=== PATIENT | female | born 1950 | race Caucasian/White ===

== ENCOUNTER 2020-01-07 14:16 | Outpatient (CLI) | payer OTHER, SELFPAY ==
--- NOTE | ~2020-01-07 | MM_ITS ---
EXAMINATION: MM screening nishi BI w jamari HISTORY: Screening mammogram TECHNIQUE: Craniocaudal and mediolateral oblique 3-D tomosynthesis images were obtained and synthetic 2-D images were generated. CAD analysis was submitted and interpreted. COMPARISON: No prior mammogram is available for comparison at this institution. BREAST PARENCHYMAL COMPOSITION: The breasts are heterogeneously dense, which may obscure small masses . FINDINGS: There is no evidence of suspicious mass, calcification, or architectural distortion to sugg est malignancy in either breast. There has been no suspicious interval change. IMPRESSION: 1. No mammographic evidence of malignancy. 2. Recommend routine screening mammography in one year. BI-RADS Category 1: Negative Reviewed, dictated and finalized at location A. PENDENT LIVING ADVISOR
== END 2020-01-07 14:17 | disposition home or self-care (01) ==
LOC: ANHIMG 14:19
PROVIDERS: PCP Internal Medicine; Visit Provider Nurse Practitioner Obstetrics & Gynecology
DX: Z12.31 Encounter for screening mammogram for malignant neoplasm of breast (principal)
CPT/HCPCS: 77063; 77067

== ENCOUNTER 2020-12-20 11:22 | Emergency (ER) | payer OTHER, SELFPAY ==
[2020-12-20 11:30] VITALS: BP 154/78; PULSE 99; RESP 16; TEMP 36.8; O2SAT 95
--- NOTE | 2020-12-20 11:31 | ED.EPISTAXIS ---
HPI - Epistaxis General Chief complaint: Epistaxis Stated complaint: nose bleed Time Seen by Provider: 12/20/20 11:52 Source: patient and RN notes reviewed Mode of arrival: ambulatory Limitations: no limitations History of Present Illness HPI Narrative: 70-year-old female presents with concern for nosebleed. Reports intermittent light nosebleed for several days. Reports in the middle of the night she noticed bleeding started again, had a large amount of bleeding gushing from both nostrils in her mouth around 5 AM this morning. Reported that lasted approximately 1 hour. Reports she recently got diagnosed with sinusitis and was placed on antibiotics, she started using a saline nose spray yesterday, is not using any other medicated no sprays. Reports she has been using a humidifier at home. MD complaint: epistaxis Location: right nostril Treatment prior to arrival: nose pinching Related Data Home Medications Medication Instructions Recorded Confirmed clonazepam [Klonopin] 0.5 mg PO DAILY 12/20/20 12/20/20 estradiol [Estrace] 1 mg PO DAILY 12/20/20 12/20/20 gabapentin [Neurontin] 800 mg PO QID 12/20/20 12/20/20 hydrocodone-acetaminophen [[place]] 1 tablet PO Q6H 12/20/20 12/20/20 lisinopril [Zestril] 10 mg PO DAILY 12/20/20 12/20/20 mirtazapine [Remeron] 30 mg PO HS 12/20/20 12/20/20 simvastatin [Zocor] 10 mg PO DAILY 12/20/20 12/20/20 venlafaxine [Effexor XR] 150 mg PO DAILY 12/20/20 12/20/20 Allergies Allergy/AdvReac Type Severity Reaction Status Date / Time iodine Allergy Unknown Verified 12/20/20 11:31 Review of Systems Review of Systems: Narrative: CONSTITUTIONAL: Denies malaise, chills, sweats, or fever. EYES: Denies visual changes, redness, or discharge. ENT: Denies rhinorrhea, congestion, sinus pain, otalgia or sore throat. Reports right nare epistaxis CARDIOVASCULAR: Denies chest pain, palpitations, or edema. RESPIRATORY: Denies cough or dyspnea. NEUROLOGIC: Denies headache. All systems reviewed & are unremarkable except as noted in HPI and below PMFSH Family History Family History (Updated 02/14/17 @ 23:56 by DOCTOR UNKNOWN) Father Family history of premature coronary heart disease, Onset Age: 67 Patient's father is Mother Family history of pancreatic cancer, Onset Age: 71 Patient's mother is Sibling Family history of malignant neoplasm of breast in first degree relative Social History Social History Alcohol intake: never Gender identity (if verbalized by the patient): Female Comments At time of signature, agree with nursing past medical, surgical, social and family history. There is no relevant family history pertinent to the presenting complaint Exam Narrative: Exam Narrative: GENERAL: Well-appearing, well-nourished, and in no acute distress. HEAD: Normocephalic, atraumatic. EYES: PERRLA, conjunctivae clear, and EOMI. ENT: Nares clear, turbinates pink, no rhinorrhea or current epistaxis, no septal hematoma noted. Mucous membranes moist. No postnasal bleeding noted NECK: Supple. CHEST: No respiratory distress. HEART: Regular rate and rhythm. SKIN: Warm, dry NEURO: Alert and oriented x3. PSYCH: Normal mood and affect Course Course Emergency Course: Patient is aware of diagnosis, understands and agrees to treatment plan. Anticipatory guidance given. Patient agrees to follow-up as directed and is aware of reasons to seek care at the emergency department. Portions of this record may have been created with voice recognition software Vital Signs Vital signs: Vital Signs Temperature 98.2 F 12/20/20 11:30 Pulse Rate 99 12/20/20 11:30 Respiratory Rate 16 12/20/20 11:30 Blood Pressure 154/78 H 12/20/20 11:30 Pulse Oximetry 95 12/20/20 11:30 Temperature 98.2 F 12/20/20 11:30 Pulse Rate 99 12/20/20 11:30 Respiratory Rate 16 12/20/20 11:30 Blood Pressure 154/78 H 12/20/20 11:30 Pulse Oximetry 95
--- NOTE | 2020-12-20 11:53 | PC.NURSE ---
1140- Afrin nasal spray administered via PLUNKET NURSE José Miguel Aguilera.
== END 2020-12-20 12:05 | disposition home or self-care (01) ==
PROVIDERS: Emergency Provider Nurse Practitioner
DX: R04.0 Epistaxis (principal); E11.9 Type 2 diabetes mellitus without complications
CPT/HCPCS: 99212; A9270; G0463

== ENCOUNTER 2020-12-21 08:13 | Emergency (ER) | payer OTHER, SELFPAY ==
[2020-12-21] VITALS (9 sets, daily range): BP systolic 115–158; BP diastolic 72–128; PULSE 75–97; RESP 15–18; TEMP 36.6; O2SAT 90–100
[2020-12-21 08:53] LABS: Basophils Absolute Auto 0.1 K/mm3 (0.0-0.1); Basophils Percent Auto 1.2 % (0.2-1.2); Eosinophils Absolute Auto 1.1 K/mm3 (0-0.3); Eosinophils Percent Auto 9.4 % (0-4.4); Hematocrit 45.9 % (37.0-47.0); Hemoglobin 15.3 g/dL (12.0-15.0); Immature Granulocyte Absolute 0.02 K/mm3 (0.00-0.031); Immature Granulocyte Percent A 0.2 % (0-0.5); Lymphocytes Absolute Auto 2.67 K/mm3 (0.9-3.2); Lymphocytes Percent Auto 22.7 % (18.3-44.2); Mean Corpuscular HGB Conc 33.3 g/dl (32-36); Mean Corpuscular Hemoglobin 32.6 pg (26-34); Mean Corpuscular Volume 97.9 fl (80-100); Mean Platelet Volume 10.2 fl (7.4-10.4); Monocytes Absolute Auto 1.1 K/mm3 (0.1-0.6); Monocytes Percent Auto 9.4 % (2.6-8.5); Neutrophils Absolute Auto 6.7 K/mm3 (1.3-6.7); Neutrophils Percent Auto 57.1 % (45.5-73.1); Platelet Count Result 292 k/mm3 (150-375); Red Blood Count 4.69 M/mm3 (4.2-5.4); Red Cell Distribution Width 12.6 % (11.5-14.5); White Blood Count 11.8 K/mm3 (4.5-10.0)
--- NOTE | 2020-12-21 08:53 | ED.GENADULT ---
HPI - General Adult General Chief complaint: Unspecified Stated complaint: epistaxis Time Seen by Provider: 12/21/20 08:20 Source: patient Mode of arrival: ambulatory Limitations: no limitations History of Present Illness HPI narrative: Patient is a 70-year-old female complaining of nosebleed, right side that started a few days ago. Patient states that she was seen in urgent care yesterday was given Afrin which eventually resolved. This morning the bleeding started and states that she has been using Afrin but to no effect. Patient denies any facial injury. Patient denies any hemoptysis, hematemesis, melena or hematochezia. Patient states that she is only on aspirin 81 mg but she has not taken it for the past few days. Patient denies being on any oral anticoagulants. Related Data Home Medications Medication Instructions Recorded Confirmed clonazepam [Klonopin] 0.5 mg PO DAILY 12/20/20 12/20/20 estradiol [Estrace] 1 mg PO DAILY 12/20/20 12/20/20 gabapentin [Neurontin] 800 mg PO QID 12/20/20 12/20/20 hydrocodone-acetaminophen [[place]] 1 tablet PO Q6H 12/20/20 12/20/20 lisinopril [Zestril] 10 mg PO DAILY 12/20/20 12/20/20 mirtazapine [Remeron] 30 mg PO HS 12/20/20 12/20/20 simvastatin [Zocor] 10 mg PO DAILY 12/20/20 12/20/20 venlafaxine [Effexor XR] 150 mg PO DAILY 12/20/20 12/20/20 Allergies Allergy/AdvReac Type Severity Reaction Status Date / Time iodine Allergy Unknown Nausea and Verified 12/21/20 08:22 Vomiting Review of Systems Review of Systems: All systems reviewed & are unremarkable except as noted in HPI and below Constitutional: Constitutional: Denies body ache(s), Denies chills, Denies excessive sweating, Denies fatigue, Denies fever(s), Denies headache(s), Denies lethargy, Denies malaise, Denies weakness and Denies weight loss Eyes: Eyes: Denies blurry vision, Denies change in vision and Denies loss of vision ENT: Denies dizziness, Denies ear discharge, Denies headache(s), Denies lip swelling, Denies nasal congestion, Denies neck pain, Denies throat swelling and Denies tongue swelling Cardiovascular: Cardiovascular: Denies chest pain, Denies chest pain at rest, Denies chest pain with activity, Denies diaphoresis, Denies rapid heart rate, Denies edema, Denies irregular heart rhythm, Denies lightheadedness, Denies palpitations, Denies dyspnea and Denies dyspnea on exertion Respiratory: Respiratory: Denies chest congestion, Denies cough, Denies hemoptysis, Denies dyspnea and Denies dyspnea on exertion Gastrointestinal: Gastrointestinal: Denies abdominal pain, Denies melena, Denies hematochezia, Denies diarrhea, Denies nausea, Denies vomiting and Denies hematemesis Musculoskeletal: Musculoskeletal: Denies abnormal gait, Denies deformity, Denies joint swelling, Denies limited range of motion, Denies neck pain and Denies numbness Neurologic: Denies Abnormal speech present, Denies abnormal gait, Denies confusion, Denies dizziness, Denies headache(s), Denies focal weakness, Denies loss of vision, Denies numbness, Denies Other visual disturbances, Denies Sensory deficit (Neuro) and Denies weakness Psychiatric: Psychiatric: Denies confusion, Denies depression, Denies auditory hallucinations, Denies homicidal ideation and Denies suicidal ideation Endocrine: Endocrine: Denies cold intolerance, Denies excessive sweating, Denies fatigue, Denies heat intolerance and Denies palpitations Hematologic/Lymphatic: Hematologic/Lymphatic: Denies easy bleeding and Denies easy bruising Allergic/Immunologic: Allergic/Immunologic: Denies lip swelling, Denies throat swelling and Denies tongue swelling PMFSH Family History Family History Father Family history of premature coronary heart disease, Onset Age: 67 Patient's father is Mother Family history of pancreatic cancer, Onset Age: 71 Patient's mother is Sibling Family history of malignant ne
[2020-12-21 09:05] LABS: INR 0.9; Partial Thromboplastin Time 32.2 SECONDS (22.3-36.8); Prothrombin Time 13.2 Seconds (11.1-14.7)
[2020-12-21 09:06] LABS: Anion Gap 6 mmol/L (8-16); Blood Urea Nitrogen 17 mg/dL (7-17); Calcium 9.5 mg/dL (8.4-10.2); Carbon Dioxide 29 mmol/L (22-30); Chloride 105 mmol/L (98-107); Estimated CRCL calculation 51 ml/min; Estimated Glomerular Filt Rate > 60; Glucose 131 mg/dL (65-105); Potassium 4.7 mmol/L (3.4-5.0); Sodium 140 mmol/L (137-145)
--- NOTE | 2020-12-21 09:30 | PC.NURSE ---
Avivao et placed by BENJAMIN Sanchez at this time.
--- NOTE | 2020-12-21 12:31 | PC.NURSE ---
Daughter called at this time - stating pt's nose is bleeding constantly from both nares now and she cannot understand why she is bleeding around the rhino rocket plug. - I explained to place an ice pack to the bridge of nose, sit up, and may attempt a noseclamp to her nose. And that pt is more than welcomed to come back if she is still bleeding and bleeding continuously.
== END 2020-12-21 10:02 | disposition home or self-care (01) ==
PROVIDERS: Emergency Provider Emergency Medicine; PCP Family Medicine
DX: R04.0 Epistaxis (principal)
CPT/HCPCS: 30901; 36415; 80048; 85025; 85610; 85730; 99283; A9270

== ENCOUNTER 2020-12-21 14:12 | Emergency (ER) | payer OTHER, SELFPAY ==
[2020-12-21 14:22] VITALS: BP 105/61; PULSE 100; RESP 17; TEMP 36.4; O2SAT 94
== END 2020-12-21 17:46 | disposition left against medical advice (07) ==
LOC: ANHED 17:46
PROVIDERS: PCP Family Medicine
DX: R04.0 Epistaxis (principal)
CPT/HCPCS: 99199

== ENCOUNTER 2020-12-22 12:20 | Emergency (ER) | payer OTHER, SELFPAY ==
[2020-12-22] VITALS (10 sets, daily range): BP systolic 116–136; BP diastolic 55–98; PULSE 71–94; RESP 18–20; TEMP 36.2; O2SAT 92–95
--- NOTE | 2020-12-22 13:05 | PC.NURSE ---
rhinorocket has been removed from rt nare for approx 10 mins. no nasal bleeding observed. pt instructed to call fidel if new onset nasal bleeding. spouse at bedside.
--- NOTE | 2020-12-22 13:36 | PC.NURSE ---
no epitaxis. pt has no c/o or requests. updated on pt status
--- NOTE | 2020-12-22 14:10 | PC.NURSE ---
up to bathroom with assist. no nasal bleeding
[2020-12-22] MEDS: MORPHINE SULFATE (*CRX) 4 MG/ML INJ IV PUSH (14:42)
[2020-12-22] MEDS: ONDANSETRON INJ 4 MG/2 ML VIAL IV PUSH (14:42)
--- NOTE | 2020-12-22 14:46 | PC.NURSE ---
medicated for pain and nausea after new lg rhinorocket inserted rt nare. pt experienced small amt bleeding after amb to bathroom.
--- NOTE | 2020-12-22 15:08 | ED.EPISTAXIS ---
HPI - Epistaxis General Chief complaint: Epistaxis Stated complaint: nosebleed Time Seen by Provider: 12/22/20 12:32 Source: patient Mode of arrival: ambulatory Limitations: no limitations History of Present Illness HPI Narrative: Patient 70 years old white female came to the emergency room because of right nostril bleeding status post Rhino Rocket placement yesterday. Patient reported that she was bleeding even at the time of discharge yesterday. Patient does not take blood thinner, Related Data Home Medications Medication Instructions Recorded Confirmed clonazepam [Klonopin] 0.5 mg PO DAILY 12/20/20 12/20/20 estradiol [Estrace] 1 mg PO DAILY 12/20/20 12/20/20 gabapentin [Neurontin] 800 mg PO QID 12/20/20 12/20/20 hydrocodone-acetaminophen [[place]] 1 tablet PO Q6H 12/20/20 12/20/20 lisinopril [Zestril] 10 mg PO DAILY 12/20/20 12/20/20 mirtazapine [Remeron] 30 mg PO HS 12/20/20 12/20/20 simvastatin [Zocor] 10 mg PO DAILY 12/20/20 12/20/20 venlafaxine [Effexor XR] 150 mg PO DAILY 12/20/20 12/20/20 Allergies Allergy/AdvReac Type Severity Reaction Status Date / Time iodine AdvReac Mild Nausea and Verified 12/22/20 12:27 Vomiting Review of Systems Review of Systems: Narrative: CONSTITUTIONAL: Denies fever, chills, or sweats. EYES: Denies visual changes, redness, or discharge. ENT: Denies rhinorrhea, congestion, sore throat, or otalgia. CARDIOVASCULAR: Denies chest pain, palpitations, or edema. RESPIRATORY: Denies cough or dyspnea. GASTROINTESTINAL: Denies abdominal pain, nausea, vomiting, or diarrhea. GENITOURINARY: Denies dysuria or hematuria. SKIN: Denies rash or itching. MUSCULOSKELETAL: Denies back pain, joint pain, or myalgia. NEUROLOGIC: Denies headache, numbness, or weakness. PSYCHIATRIC: Denies anxiety or depression. [facility] Family History Family History Father Family history of premature coronary heart disease, Onset Age: 67 Patient's father is Mother Family history of pancreatic cancer, Onset Age: 71 Patient's mother is Sibling Family history of malignant neoplasm of breast in first degree relative Social History Social History Alcohol intake: never Gender identity (if verbalized by the patient): Female Exam Narrative: Exam Narrative: General appearance: Well-developed, well-nourished Skin: Normal color Head: Normocephalic, nontraumatic Eyes: Clear conjunctiva ENT: Oropharynx normal, ears normal, FRESH blood around the Rhino Rocket , Rocket balloon is deflated and loose Neck: Supple, nontender Chest and respiratory: Airway patent, no respiratory distress, no accessory muscle use Heart: Regular rate/rhythm Neurologic: Alert and oriented ?3, STAFF FORESTER is normal as tested, no gross motor deficit Course Course Emergency Course: Improving Vital Signs Vital signs: Vital Signs Temperature 36.2 C L 12/22/20 12:27 Pulse Rate 87 12/22/20 12:27 Respiratory Rate 20 12/22/20 12:27 Blood Pressure 136/98 H 12/22/20 12:27 Pulse Oximetry 94 12/22/20 12:27 Temperature 36.2 C L 12/22/20 12:27 Pulse Rate 94 12/22/20 12:31 Respiratory Rate 20 12/22/20 12:27 Blood Pressure 116/55 L 12/22/20 13:31 Pulse Oximetry 93 12/22/20 14:04 Procedures Epistaxis Control right: Epistaxis Control Date: 12/22/20 Epistaxis Control Time: 15:16 Time Out Performed: Yes Direct Inspection: yes and unable to visualize Clots Removed by: manually (No blood clots, no active bleeding) Cautery Used: none Device Inserted: hemostati
== END 2020-12-22 15:48 | disposition home or self-care (01) ==
PROVIDERS: Emergency Provider Emergency Medicine; PCP Family Medicine
DX: R04.0 Epistaxis (principal)
CPT/HCPCS: 30901; 96374; 96375; 99284; J2270; J2405

== ENCOUNTER 2021-04-24 15:01 | Outpatient (CLI) | payer OTHER, SELFPAY ==
--- NOTE | ~2021-04-24 | MM_ITS ---
EXAMINATION: MM screening nishi BI w jamari HISTORY: Screening mammogram, family history of breast cancer in her sister. TECHNIQUE: Craniocaudal and mediolateral oblique 3-D tomosynthesis images were obtained and synthetic 2-D images were generated. CAD analysis was submitted and interpreted. COMPARISON: 12/30/2019, 01/04/2019, 11/19/2017 BREAST PARENCHYMAL COMPOSITION: The breasts are heterogeneously dense, which may obscure small masses . FINDINGS: There is no evidence of suspicious mass, calcification, or architectural distortion to sugg est malignancy in either breast. There has been no suspicious interval change. IMPRESSION: 1. No mammographic evidence of malignancy. 2. Recommend routine screening mammography in one year. BI-RADS Category 1: Negative Reviewed, dictated and finalized at location A.
== END 2021-04-24 15:02 | disposition home or self-care (01) ==
LOC: ANHIMG 15:06
PROVIDERS: PCP Family Medicine; Visit Provider Family Medicine
DX: Z12.31 Encounter for screening mammogram for malignant neoplasm of breast (principal)
CPT/HCPCS: 77063; 77067

== ENCOUNTER 2021-07-31 13:17 | Outpatient (CLI) | payer OTHER, SELFPAY ==
--- NOTE | 2021-07-31 13:30 | ECG_ITS ---
Measurements Intervals [place] Rate: 69 P: 58 [place]: 173 QRS: -26 QRSD: 98 T: 59 QT: 409 QTc: 440 Interpretive Statements SINUS RHYTHM BORDERLINE R WAVE PROGRESSION, ANTERIOR LEADS BASELINE ARTIFACT- I, II, III, AVR, AVL, AVF BORDERLINE ECG Electronically Signed On 07-31-2021 13:47:44 CDT by Mohan Kinsey D.O.
[2021-07-31 13:41] LABS: Hematocrit 45.8 % (37.0-47.0)
[2021-07-31 13:59] LABS: Anion Gap 8 mmol/L (8-16); Blood Urea Nitrogen 13 mg/dL (7-17); Calcium 9.6 mg/dL (8.4-10.2); Carbon Dioxide 29 mmol/L (22-30); Chloride 100 mmol/L (98-107); Estimated Glomerular Filt Rate > 60; Glucose 221 mg/dL (65-110); Potassium 4.1 mmol/L (3.4-5.0); Sodium 137 mmol/L (137-145)
== END 2021-07-31 13:18 | disposition home or self-care (01) ==
LOC: ANHSURGERY 13:21
PROVIDERS: Anesthesiology; PCP Family Medicine; Visit Provider Otolaryngology
DX: Z01.818 Encounter for other preprocedural examination (principal); E11.9 Type 2 diabetes mellitus without complications; D64.9 Anemia, unspecified
CPT/HCPCS: 36415; 80048; 85014; 85018; 93005

== ENCOUNTER 2021-08-07 01:19 | Day surgery (SDC) | payer OTHER, SELFPAY ==
[2021-07-25 13:46] VITALS: BMI 23.6
--- NOTE | 2021-08-06 06:27 | PM.HPGS ---
History of Present Illness History of Present Illness Consent: Risks, benefits, and alternatives have been discussed and questions answered. Patient agrees to proceed with procedure. Chief complaint: right intranasal adhesion Narrative: Yamile Richardson is a 71 year old female that had epistaxis in the past and has developed an adhesion on the right side from the septum to the turbinate Review of Systems Review of Systems: All systems reviewed & are unremarkable except as noted in HPI and below PMFSH Family History Family History Father Family history of premature coronary heart disease, Onset Age: 67 Patient's father is Hypertension Mother Family history of pancreatic cancer, Onset Age: 71 Patient's mother is Sibling Family history of malignant neoplasm of breast in first degree relative Social History Social History Smoking packs per day: 0.5 Smoking cigarettes per day: 10.0 Years smoked: 10 Smoking pack-years: 5.00 Smoking status: Former smoker Tobacco type: cigarettes Second hand tobacco smoke exposure: No Additional smoking assessment comments: STATES QUIT AGE 49 Alcohol intake: never Substance use: never Substance use type: does not use Additional living arrangements comments: LIVES WITH SPOUSE - [place] Gender identity (if verbalized by the patient): Female Spiritual care concerns: No Meds Home Medications and Allergies Home Medications Medication Instructions Recorded Confirmed Type hydrocodone-acetaminophen [[place]] 1 tablet PO Q6H 12/20/20 07/25/21 History lisinopril [Zestril] 10 mg PO DAILY 12/20/20 07/25/21 History mirtazapine [Remeron] 30 mg PO HS 12/20/20 07/25/21 History simvastatin [Zocor] 10 mg PO DAILY 12/20/20 07/25/21 History venlafaxine [Effexor XR] 150 mg PO HS 12/20/20 07/25/21 History gabapentin 800 mg tablet 800 mg PO QID #120 tablet 03/28/21 07/25/21 Rx ascorbic acid (vitamin C) [Vitamin 500 mg PO DAILY 07/25/21 07/25/21 History C] aspirin [Aspir-81] 81 mg PO DAILY 07/25/21 07/25/21 History calcium carbonate [Calcium 600] 600 mg PO DAILY 07/25/21 07/25/21 History cholecalciferol (vitamin D3) 50 mcg PO DAILY 07/25/21 07/25/21 History clonazepam 0.5 mg PO TID PRN 07/25/21 07/25/21 History ferrous sulfate [Iron (ferrous 325 mg PO DAILY 07/25/21 07/25/21 History sulfate)] metformin 500 mg PO BID 07/25/21 07/25/21 History metoprolol succinate 200 mg PO QAM 07/25/21 07/25/21 History Allergies Allergy/AdvReac Type Severity Reaction Status Date / Time iodine AdvReac Mild Nausea and Verified 07/25/21 13:39 Vomiting Exam Narrative: chest clear heart without murmurs abdomen soft a adhesion on the right side of the nose Assessment and Plan Additional Plan plan is a lysis of adhesions and placement of splints
[2021-08-07] VITALS (9 sets, daily range): BP systolic 79–136; BP diastolic 33–70; PULSE 50–64; RESP 11–18; TEMP 36.2; O2SAT 95–98; BMI 24.0
--- NOTE | 2021-08-07 05:56 | WPDHPUPDATE1 ---
History and Physical Update Update Date/Time: 08/07/21 05:56 History and Physical has been reviewed, including an updated exam of the patient. There are NO changes in the patient's condition. Risks, benefits, and alternatives have been discussed and questions answered. Patient agrees to proceed with procedure.
[2021-08-07 08:46] LABS: Glucose Point of Care 169 mg/dl (65-105)
[2021-08-07] MEDS: LACTATED RINGERS 1,000 ML 30 ML IV CONT ×2 (08:55→11:10)
--- NOTE | 2021-08-07 09:07 | WPDANESEPPF ---
Anes - Initial Pre Proc Eval Procedure: Operation Date: 08/07/21 10:00 Proposed Procedures p Lysis Adhesion Right Side of Nose - Mark Aguayo MD Date/Time: 08/07/21 09:07 Surgeon: Mark Aguayo MD Pre Op Diagnosis: right intranasal adhesion Patient Data Age: 71 Gender: F Height: 1.75 m Weight: 73.9 kg Allergies Allergy/AdvReac Type Severity Reaction Status Date / Time iodine AdvReac Mild Nausea and Verified 08/07/21 08:36 Vomiting amoxicillin AdvReac Vomiting Verified 08/07/21 08:36 Home Medications Medication Instructions Recorded Confirmed Type hydrocodone-acetaminophen [[place]] 1.5 tablet PO Q6H 12/20/20 08/07/21 History lisinopril [Zestril] 10 mg PO DAILY 12/20/20 07/25/21 History mirtazapine [Remeron] 30 mg PO HS 12/20/20 07/25/21 History simvastatin [Zocor] 10 mg PO DAILY 12/20/20 07/25/21 History venlafaxine [Effexor XR] 150 mg PO HS 12/20/20 07/25/21 History gabapentin 800 mg tablet 800 mg PO QID #120 tablet 03/28/21 08/07/21 Rx ascorbic acid (vitamin C) [Vitamin 500 mg PO DAILY 07/25/21 08/07/21 History C] aspirin [Aspir-81] 81 mg PO DAILY 07/25/21 08/07/21 History calcium carbonate [Calcium 600] 600 mg PO DAILY 07/25/21 08/07/21 History cholecalciferol (vitamin D3) 50 mcg PO DAILY 07/25/21 08/07/21 History clonazepam 0.5 mg PO TID PRN 07/25/21 08/07/21 History ferrous sulfate [Iron (ferrous 325 mg PO DAILY 07/25/21 08/07/21 History sulfate)] metformin 500 mg PO BID 07/25/21 07/25/21 History metoprolol succinate 200 mg PO QAM 07/25/21 08/07/21 History Laboratory Tests 08/07/21 08:44 POC Capillary Glucose 169 mg/dl H mg/dl (65-105) Patient hx anesthesia problems: none Family hx anesthesia problems: none Results Review: All pre-operative results and documents have been reviewed as part of the pre-operative evaluation. [facility] Past Medical History Medical History (Updated 08/07/21 @ 09:11 by Hussein Avila MD) HTN (hypertension) Hyperlipidemia Surgical History Surgical History (Updated 08/07/21 @ 09:11 by Hussein Avila MD) H/O sinus surgery Family History Family History Father Family history of premature coronary heart disease, Onset Age: 67 Patient's father is Hypertension Mother Family history of pancreatic cancer, Onset Age: 71 Patient's mother is Sibling Family history of malignant neoplasm of breast in first degree relative Social History Social History Smoking packs per day: 0.5 Smoking cigarettes per day: 10.0 Years smoked: 10 Smoking pack-years: 5.00 Tobacco type: cigarettes Second hand tobacco smoke exposure: No Additional smoking assessment comments: STATES QUIT AGE 49 Alcohol intake: never Substance use: never Substance use type: does not use Living arrangements: with family Additional living arrangements comments: LIVES WITH SPOUSE - [place] Gender identity (if verbalized by the patient): Female Spiritual care concerns: No Anes - Eval Final PreProcedure Day of Procedure 08/07/21 09:07 Patient weight: normal Heart: regular rate and rhythm Lungs: clear to auscultation Airway: Mallampati scale class II Neurological: alert and oriented Last oral intake: >/= 8 hours ASA classification: III Emergent: no Anesthetic plan: proceed Anesthesia type and monitoring: general ETT and standard monitoring Results Review: All pre-operative results and documents have been reviewed as part of the pre-operative evaluation. Informed Consent: The patient's anesthetic plan and its attendant risks and benefits were discussed with the patient/family/POA. Questions were solicited and answers provided to the satisfaction of the patient/family/POA.
[2021-08-07] MEDS: COCAINE HCL (*CRX) 4% TOP SOLN 4 ML VIAL 1 APPLIC TOPICAL (10:00)
[2021-08-07] MEDS: LIDO 1%/EPINEPHRINE 1:100,000 50 ML VIAL INFILTRATE (10:02)
--- NOTE | 2021-08-07 10:10 | W.PM.PROC2 ---
Procedure Note - Detailed Date of Procedure 08/07/21 Pre-op Diagnosis right intranasal adhesion Post-op Diagnosis same Procedure Performed Lysis of adhesions on the right side of the nose Surgeon Mark Aguayo MD Description of Procedure Patient was prepped and draped fashion anesthesia the nose packed with 4% cocaine cottonoids injected with xylocaine with adrenaline the adhesion was lysed on both sides cauterized with bipolar cautery and then [place] splints placed sutures on both sides with 2-0 silk Complications No immediate complications Condition stable Disposition PACU
[2021-08-07 10:28] LABS: Glucose Point of Care 124 mg/dl (65-105)
[2021-08-07] MEDS: fentaNYL CITRATE INJ (*CRX) 100 MCG/2 ML VIAL 25 MCG IV PUSH ×4 (11:04→11:12)
== END 2021-08-07 12:00 | disposition home or self-care (01) ==
PROVIDERS: PCP Family Medicine; Visit Provider Otolaryngology
PROC: (CPT 30560; principal; 2021-08-07 10:00)
DX: J34.89 Other specified disorders of nose and nasal sinuses (principal); I10 Essential (primary) hypertension; E11.9 Type 2 diabetes mellitus without complications; Z79.84 Long term (current) use of oral hypoglycemic drugs; Z87.891 Personal history of nicotine dependence
CPT/HCPCS: 30560; 36415; 80048; 82948; 85014; 85018; 93005; A9270; J1100; J2405; J2704; J3010; J7120

== ENCOUNTER 2022-05-23 01:38 | Day surgery (SDC) | payer OTHER, SELFPAY ==
[2022-05-06 13:49] VITALS: BMI 23.8
--- NOTE | 2022-05-22 12:47 | WPDANESEPPF ---
Anes - Initial Pre Proc Eval Procedure: Operation Date: 05/23/22 08:30 Proposed Procedures p Esophagogastroduodenoscopy & Screening Colonoscopy - Kash Ngo MD Date/Time: 05/22/22 12:47 Surgeon: Kash Ngo MD Pre Op Diagnosis: hx of rectal polyps, dysphagia Patient Data Age: 71 Gender: F Height: 1.75 m Weight: 73 kg Allergies Allergy/AdvReac Type Severity Reaction Status Date / Time iodine AdvReac Mild Nausea and Verified 05/06/22 13:46 Vomiting Augmentin AdvReac Intermediate Nausea and Uncoded 05/06/22 13:46 Vomiting Home Medications Medication Instructions Recorded Confirmed Type lisinopril 10 mg tablet (Zestril) 10 mg PO DAILY 12/20/20 05/06/22 History mirtazapine 30 mg tablet (Remeron) 30 mg PO HS 12/20/20 05/06/22 History simvastatin 10 mg tablet (Zocor) 10 mg PO DAILY 12/20/20 05/06/22 History ascorbic acid (vitamin C) 500 mg 500 mg PO DAILY 07/25/21 05/06/22 History tablet (Vitamin C) aspirin 81 mg tablet,delayed 81 mg PO DAILY 07/25/21 05/06/22 History release calcium carbonate 600 mg calcium 600 mg PO DAILY 07/25/21 05/06/22 History (1,500 mg) tablet (Calcium) ferrous sulfate 325 mg (65 mg 325 mg PO DAILY 07/25/21 05/06/22 History iron) tablet (Iron (ferrous sulfate)) folic acid 800 mcg tablet 0.8 mg PO DAILY 04/11/22 05/06/22 History vitamin B complex (B 1 tablet PO DAILY 04/11/22 05/06/22 History Complex-Vitamin B12 tablet) zinc gluconate 50 mg tablet 50 mg PO DAILY 04/11/22 05/06/22 History gabapentin 800 mg tablet 800 mg PO QID #360 tabs 04/12/22 05/06/22 Rx (Neurontin) metformin 500 mg tablet 1,000 mg PO BID #360 tabs 04/12/22 05/06/22 Rx metoprolol succinate 100 mg 100 mg PO DAILY #90 tabs 04/12/22 05/06/22 Rx tablet,extended release 24 hr venlafaxine 150 mg 150 mg PO HS #90 caps 04/12/22 05/06/22 Rx capsule,extended release 24 hr (Effexor XR) sodium sul 1.479 gram-potas ch See Rx Instructions PO PER PKG DIR 04/15/22 Rx 0.188 gram-magnes sul 0.225 gram #24 tabs tablet (Sutab) clonazepam 0.5 mg tablet 0.5 mg PO BID PRN Anxiety 05/06/22 05/06/22 History glimepiride 1 mg tablet 1 mg PO QAM #90 tabs 05/08/22 Rx hydrocodone 10 mg-acetaminophen 1 tablet PO TID PRN PAIN #90 tabs 05/08/22 Rx 325 mg tablet Patient hx anesthesia problems: none Family hx anesthesia problems: none Results Review: All pre-operative results and documents have been reviewed as part of the pre-operative evaluation. [facility] Past Medical History Medical History (Updated 05/22/22 @ 12:48 by Eddi Calhoun MD) HTN (hypertension) Hyperlipidemia Type 2 diabetes mellitus with hyperglycemia Surgical History Surgical History (Updated 04/12/22 @ 06:34 by Jamal Ac MD) History of appendectomy History of cholecystectomy History of hysterectomy History of sinus surgery History of tonsillectomy Family History Family History Father Family history of premature coronary heart disease, Onset Age: 67 Patient's father is Hypertension Mother Family history of pancreatic cancer, Onset Age: 71 Patient's mother is Sibling Family history of malignant neoplasm of breast in first degree relative Social History Social History (Updated 04/11/22 @ 13:32 by Nichole Crandall MA) Smoking packs per day: 0.5 Smoking cigarettes per day: 10.0 Years smoked: 10 Smoking pack-years: 5.00 Smoking status: Former smoker Tobacco type: cigarettes Second hand tobacco smoke exposure: No Additional smoking assessment comments: STATES QUIT AGE 49 Alcohol intake: never Substance use: never Substance use type: does not use Living arrangements: with family Additional living arrangements comments: LIVES WITH SPOUSE - [place] Gender identity (if verbalized by the patient): Female Sexual Orientation (if Verbalized by the Patient): Stra
[2022-05-23 07:21] VITALS: BP 168/87; PULSE 82; RESP 20; TEMP 36.6; O2SAT 94
[2022-05-23] MEDS: LACTATED RINGERS 1,000 ML 150 ML IV CONT (07:41)
--- NOTE | 2022-05-23 07:58 | WPDGICN ---
Assessment and Plan Assessment and plan (1) Dysphagia: Code(s): R13.10 - Dysphagia, unspecified Status: Acute Assessment and Plan: Patient has difficulty swallowing. Difficulty initiating swallowing coughing after eating suggest oropharyngeal dysphagia. However she also complains of food hanging up in passing slowly through the chest. Plan is for EGD to exclude esophageal narrowing. If this fails to identify source of dysphagia ENT evaluation or modified barium swallow may be of benefit. (2) History of colon polyps: Code(s): Z86.010 - Personal history of colonic polyps Status: Acute Assessment and Plan: Patient has a prior history of colon polyps most recently 2015. Plan is for surveillance colonoscopy now. Consider this a 5 year intervals. GI Consult Note Consult date/time: 05/23/22 07:58 Reason for consult: Dysphagia and prior history of colon polyps. HPI: Yamile Richardson is a 71 year old female Presents for colonoscopy and EGD. Patient has a history of prior colon polyps. Most recent colonoscopy 2015. Patient presents today for neoplasia screening. She denies any blood in her stools. States her weight is normal. Does complain of occasional constipation that improves on taking fiber. Additionally patient complains of difficulty swallowing. She states she coughs when she eats frequently. She has difficulty initiating a swallow food will stay in her throat very frequently. Additionally sometimes feels as though food may catch in passed slowly through her chest. An EGD is subsequently been requested. Review of Systems Review of Systems: Review of systems noncontributory. [facility] Past Medical History Medical History (Updated 05/23/22 @ 08:00 by Kash Ngo MD) HTN (hypertension) Hyperlipidemia Type 2 diabetes mellitus with hyperglycemia Surgical History Surgical History (Updated 04/12/22 @ 06:34 by Jamal Ac MD) History of appendectomy History of cholecystectomy History of hysterectomy History of sinus surgery History of tonsillectomy Family History Family History Father Family history of premature coronary heart disease, Onset Age: 67 Patient's father is Hypertension Mother Family history of pancreatic cancer, Onset Age: 71 Patient's mother is Sibling Family history of malignant neoplasm of breast in first degree relative Social History Social History (Updated 04/11/22 @ 13:32 by Nichole Crandall MA) Smoking packs per day: 0.5 Smoking cigarettes per day: 10.0 Years smoked: 10 Smoking pack-years: 5.00 Smoking status: Former smoker Tobacco type: cigarettes Second hand tobacco smoke exposure: No Additional smoking assessment comments: STATES QUIT AGE 49 Alcohol intake: never Substance use: never Substance use type: does not use Living arrangements: with family Additional living arrangements comments: LIVES WITH SPOUSE - [place] Gender identity (if verbalized by the patient): Female Sexual Orientation (if Verbalized by the Patient): Straight or Heterosexual Spiritual care concerns: No Agree to blood products: Yes Meds Home Medications and Allergies Home Medications Medication Instructions Recorded Confirmed Type lisinopril 10 mg tablet (Zestril) 10 mg PO DAILY 12/20/20 05/06/22 History mirtazapine 30 mg tablet (Remeron) 30 mg PO HS 12/20/20 05/06/22 History simvastatin 10 mg tablet (Zocor) 10 mg PO DAILY 12/20/20 05/06/22 History ascorbic acid (vitamin C) 500 mg 500 mg PO DAILY 07/25/21 05/06/22 History tablet (Vitamin C) aspirin 81 mg tablet,delayed 81 mg PO DAILY 07/25/21 05/06/22 History release calcium carbonate 600 mg calcium 600 mg PO DAILY 07/25/21 05/06/22 History (1,500 mg) tablet (Calcium) ferrous sulfate 325 mg (65 mg 325 mg PO DAILY 07/25/21 05/06/22 History iron)
[2022-05-23] MEDS: SIMETHICONE ORAL SUSPENSION 20 MG/0.3 ML 30 ML BOTTLE 0.6 ML IRRIGATION (08:49)
--- NOTE | 2022-05-23 08:52 | SUR.OPER ---
EGD ENDED AT 844, COLONOSCOPY BEGAN AT 850.
[2022-05-23 09:07] VITALS: BP 140/64; PULSE 70; RESP 15; O2SAT 96
[2022-05-23 09:17] VITALS: BP 148/73; PULSE 65; RESP 12; O2SAT 97
[2022-05-23 09:27] VITALS: BP 152/63; PULSE 64; RESP 18; O2SAT 97
[2022-05-23 14:06] LABS: Glucose Point of Care 164 mg/dl (65-105)
== END 2022-05-23 09:32 | disposition home or self-care (01) ==
PROVIDERS: PCP Family Medicine Adolescent Medicine; Visit Provider Internal Medicine Gastroenterology
PROC: 0DJ08ZZ Inspection of Upper Intestinal Tract, Via Natural or Artificial Opening Endoscopic (ICD-10-PCS; CPT 43235; principal; 2022-05-23 08:30)
DX: Z12.11 Encounter for screening for malignant neoplasm of colon (principal); Z86.010 Personal history of colon polyps; K64.8 Other hemorrhoids; K25.3 Acute gastric ulcer without hemorrhage or perforation; R13.10 Dysphagia, unspecified; K26.9 Duodenal ulcer, unspecified as acute or chronic, without hemorrhage or perforation; I10 Essential (primary) hypertension; E78.5 Hyperlipidemia, unspecified; E11.9 Type 2 diabetes mellitus without complications; Z87.891 Personal history of nicotine dependence
CPT/HCPCS: 43239; G0105; 82948; 87081; J2704; J7120

== ENCOUNTER 2022-06-26 10:04 | Outpatient (CLI) | payer OTHER, SELFPAY ==
--- NOTE | ~2022-06-26 | XR_ITS ---
EXAMINATION: XR barium swallow modified DATE: 06/26/2022 10:29 INDICATION: Dysphagia TECHNIQUE: Modified barium esophagram was performed by myself to administered fluoroscopy, in conjun ction with speech pathologist who administered barium in varying consistencies as per speech patholog ist documentation. This was recorded on tape. A single fluoroscopic spot image was recorded. The DAP for this procedure was 1.75 Gycm2. Fluoroscopy exposure time was 2.5 minutes. FINDINGS: Oral stage: Reduced lingual movement. Pharyngeal phase: Reduced tongue base contraction, reduced pharyngeal squeeze, piriform sinus residue . Laryngeal penetration: None. Aspiration: None. Laryngeal sensitivity: Not applicable. IMPRESSION: Abnormal modified barium esophagram as detailed above. Please refer to speech pathologist findings and specific feeding recommendations. Reviewed, dictated and finalized at location A.
--- NOTE | 2022-06-26 12:20 | STOPEVAL ---
Modified Barium Swallow Study Thank you for referring Yamile Richardson to [facility].? Attending Provider: Kash Ngo MD * Outpatient Evaluation Start: 06/26/22 11:41 Freq: Status: Complete Protocol: Document 06/26/22 11:42 [facility] (Rec: 06/26/22 12:12 [facility] [id number]) Therapy Assessment Status Assessment Status Assessment Status Evaluation Outpatient Past Medical History Past Medical History Source of Past Medical History Patient Neurological History Hx Other Neurological Disorders Yes: Radiculopathy; tremors Cardiovascular History Hx Hypercholesterolemia Yes Hx Hypertension Yes Respiratory History Hx Respiratory Disorders No Significant History Gastrointestinal History Hx Appendectomy Yes Hx Cholecystectomy Yes Hx Polyps Yes Genitourinary History Hx Other Genitourinary Disorders Yes: KATIE Musculoskeletal History Hx Arthritis Yes Hematological History Hx Anemia Yes Endocrine History Hx Diabetes Yes: Type 2 HEENT History Hx Tonsillectomy Yes Hx Sinus Problems Yes: Surgery X2 Integumentary History Hx Excision Skin Lesion Yes: R ARM; FACE SKIN CA REMOVED Hx Shingles Yes Psychosocial History Hx Psychiatric Disorders No Significant History Pain History Has Past Pain Affected Your Daily Life Yes History of Long-Term Prescription Pain Yes Medication Use (Opiates) Anesthesia History Hx Anesthesia Reactions No Significant History Other History Hx Cancer Yes: Skin Cancer Prior Level of Function Medications Home Meds (Include: OTC, RX, Vitamins, Clonazepam .5mg 2-3X daily, Herbals, Dose, Route,and Frequency) Gabapentin 800 mg 4X daily, Query Text:Home Med Entries Will No Glimepiride 1mg 1X morning, Longer Recall From Past Visits. Home Hydrocodone 10 mg/325 mg 3X Meds Must Be Re-entered With Each Visit. daily, Lisinopril 10 mg 1xdaily, Metformin 500mg 4X daily, Metoprolol ER Succinate 100MG 1X daily, mirtazapine 30 mg 1X nightly, Omeprazole 20 mg 1X daily, Simvastatin 10 mg 1X nightly, Venlafaxine ER 150 mg 1X daily. OTC medications taken 1 time daily : Aakash, Vit C and D, iron, calcium, zinc, folic acid, B- 12. OTC medications taken as needed: Tylenol, Fiber-Lax Pain Assessment Self Report Self Report Pain Level 0 Pain Score Pain Score 0: Self Report Modified Barium Swallow Evaluation Recent Sw
== END 2022-06-26 10:05 | disposition home or self-care (01) ==
PROVIDERS: PCP Family Medicine Adolescent Medicine; Visit Provider Internal Medicine Gastroenterology
DX: R13.10 Dysphagia, unspecified (principal)
CPT/HCPCS: 92611

== ENCOUNTER 2022-07-25 00:38 | Day surgery (SDC) | payer OTHER, SELFPAY ==
[2022-07-10 14:35] VITALS: BMI 23.8
--- NOTE | 2022-07-24 10:19 | WPDANESEPPF ---
Anes - Initial Pre Proc Eval Procedure: Operation Date: 07/25/22 09:00 Proposed Procedures p Esophagogastroduodenoscopy - Kash Ngo MD Date/Time: 07/24/22 10:19 Surgeon: Kash Ngo MD Pre Op Diagnosis: gastric ulcer Patient Data Age: 71 Gender: F Height: 1.75 m Weight: 73 kg Allergies Allergy/AdvReac Type Severity Reaction Status Date / Time iodine AdvReac Mild Nausea and Verified 07/25/22 07:54 Vomiting amoxicillin [From Augmentin] AdvReac Nausea and Verified 07/25/22 07:54 Vomiting clavulanic acid AdvReac Nausea and Verified 07/25/22 07:54 [From Augmentin] Vomiting Home Medications Medication Instructions Recorded Confirmed Type mirtazapine 30 mg tablet (Remeron) 30 mg PO HS 12/20/20 07/25/22 History simvastatin 10 mg tablet (Zocor) 10 mg PO DAILY 12/20/20 07/25/22 History ascorbic acid (vitamin C) 500 mg 500 mg PO DAILY 07/25/21 07/25/22 History tablet (Vitamin C) calcium carbonate 600 mg calcium 600 mg PO DAILY 07/25/21 07/25/22 History (1,500 mg) tablet (Calcium) ferrous sulfate 325 mg (65 mg 325 mg PO DAILY 07/25/21 07/25/22 History iron) tablet (Iron (ferrous sulfate)) folic acid 800 mcg tablet 0.8 mg PO DAILY 04/11/22 07/25/22 History gabapentin 800 mg tablet 800 mg PO QID #360 tabs 04/12/22 07/25/22 Rx (Neurontin) metoprolol succinate 100 mg 100 mg PO DAILY #90 tabs 04/12/22 07/25/22 Rx tablet,extended release 24 hr venlafaxine 150 mg 150 mg PO HS #90 caps 04/12/22 07/25/22 Rx capsule,extended release 24 hr (Effexor XR) omeprazole 20 mg capsule,delayed 20 mg PO DAILY #30 caps 05/23/22 07/25/22 Rx release metformin 500 mg tablet 1,000 mg PO BID #360 tabs 05/28/22 07/25/22 Rx lisinopril 10 mg tablet (Zestril) 10 mg PO DAILY #90 tabs 06/04/22 07/25/22 Rx glimepiride 1 mg tablet 1 mg PO QAM #90 tabs 07/09/22 07/25/22 Rx clonazepam 0.5 mg tablet 0.5 mg PO TID PRN Anxiety #90 tabs 07/11/22 07/25/22 Rx hydrocodone 10 mg-acetaminophen 1 tablet PO TID PRN PAIN #90 tabs 07/11/22 07/25/22 Rx 325 mg tablet Patient hx anesthesia problems: none Family hx anesthesia problems: none Results Review: All pre-operative results and documents have been reviewed as part of the pre-operative evaluation. [facility] Past Medical History Medical History (Updated 07/24/22 @ 10:20 by Noe Shaver DO) Anemia Chronic, continuous use of opioids HTN (hypertension) Hyperlipidemia Type 2 diabetes mellitus with hyperglycemia Surgical History Surgical History (Updated 04/12/22 @ 06:34 by Jamal Ac MD) History of appendectomy History of cholecystectomy History of hysterectomy History of sinus surgery History of tonsillectomy Family History Family History Father Family history of premature coronary heart disease, Onset Age: 67 Patient's father is Hypertension Mother Family history of pancreatic cancer, Onset Age: 71 Patient's mother is Sibling Family history of malignant neoplasm of breast in first degree relative Social History Social History (Updated 04/11/22 @ 13:32 by Nichole Crandall MA) Smoking packs per day: 0.5 Smoking cigarettes per day: 10.0 Years smoked: 10 Smoking pack-years: 5.00 Smoking status: Former smoker Tobacco type: cigarettes Second hand tobacco smoke exposure: No Additional smoking assessment comments: STATES QUIT AGE 49 Alcohol intake: never Substance use: never Substance use type: does not use Living arrangements: with family Additional living arrangements comments: LIVES WITH SPOUSE - [place] Gender identity (if verbalized by the patient): Female Sexual Orientation (if Verbalized by the Patient): Straight or Heterosexual Spiritual care concerns: No Agree to blood products: Yes Anes - Eval Final PreProcedure Day of Procedure 07/24/22 10:19 Patient weight
[2022-07-25 07:53] LABS: Glucose Point of Care 143 mg/dl (65-105)
[2022-07-25 07:56] VITALS: BP 123/93; PULSE 74; RESP 16; TEMP 36.9; O2SAT 95
[2022-07-25] MEDS: LACTATED RINGERS 1,000 ML 150 ML IV CONT (08:00)
--- NOTE | 2022-07-25 08:29 | PM.IMHP ---
H&P: HPI History of Present Illness Date/Time: 07/25/22 08:29 Chief Complaint: Gastric ulcer. Narrative: This is a 71-year-old white female patient presents for follow-up EGD. Patient has previous complaints of dysphagia. EGD several months ago revealed gastric ulceration and duodenal erosions. Since that time patient has been maintained on omeprazole 20mg p.o. daily. She currently denies any difficulty swallowing. Patient has had no bleeding. Her H pylori was negative. family history is noncontributory. Review of Systems Review of Systems: review of systems noncontributory. [facility] Past Medical History Medical History (Updated 07/24/22 @ 10:20 by Noe Shaver DO) Anemia Chronic, continuous use of opioids HTN (hypertension) Hyperlipidemia Type 2 diabetes mellitus with hyperglycemia Surgical History Surgical History (Updated 04/12/22 @ 06:34 by Jamal Ac MD) History of appendectomy History of cholecystectomy History of hysterectomy History of sinus surgery History of tonsillectomy Family History Family History Father Family history of premature coronary heart disease, Onset Age: 67 Patient's father is Hypertension Mother Family history of pancreatic cancer, Onset Age: 71 Patient's mother is Sibling Family history of malignant neoplasm of breast in first degree relative Social History Social History (Updated 04/11/22 @ 13:32 by Nichole Crandall MA) Smoking packs per day: 0.5 Smoking cigarettes per day: 10.0 Years smoked: 10 Smoking pack-years: 5.00 Smoking status: Former smoker Tobacco type: cigarettes Second hand tobacco smoke exposure: No Additional smoking assessment comments: STATES QUIT AGE 49 Alcohol intake: never Substance use: never Substance use type: does not use Living arrangements: with family Additional living arrangements comments: LIVES WITH SPOUSE - [place] Gender identity (if verbalized by the patient): Female Sexual Orientation (if Verbalized by the Patient): Straight or Heterosexual Spiritual care concerns: No Agree to blood products: Yes Meds Home Medications and Allergies Home Medications Medication Instructions Recorded Confirmed Type mirtazapine 30 mg tablet (Remeron) 30 mg PO HS 12/20/20 07/25/22 History simvastatin 10 mg tablet (Zocor) 10 mg PO DAILY 12/20/20 07/25/22 History ascorbic acid (vitamin C) 500 mg 500 mg PO DAILY 07/25/21 07/25/22 History tablet (Vitamin C) calcium carbonate 600 mg calcium 600 mg PO DAILY 07/25/21 07/25/22 History (1,500 mg) tablet (Calcium) ferrous sulfate 325 mg (65 mg 325 mg PO DAILY 07/25/21 07/25/22 History iron) tablet (Iron (ferrous sulfate)) folic acid 800 mcg tablet 0.8 mg PO DAILY 04/11/22 07/25/22 History gabapentin 800 mg tablet 800 mg PO QID #360 tabs 04/12/22 07/25/22 Rx (Neurontin) metoprolol succinate 100 mg 100 mg PO DAILY #90 tabs 04/12/22 07/25/22 Rx tablet,extended release 24 hr venlafaxine 150 mg 150 mg PO HS #90 caps 04/12/22 07/25/22 Rx capsule,extended release 24 hr (Effexor XR) omeprazole 20 mg capsule,delayed 20 mg PO DAILY #30 caps 05/23/22 07/25/22 Rx release metformin 500 mg tablet 1,000 mg PO BID #360 tabs 05/28/22 07/25/22 Rx lisinopril 10 mg tablet (Zestril) 10 mg PO DAILY #90 tabs 06/04/22 07/25/22 Rx glimepiride 1 mg tablet 1 mg PO QAM #90 tabs 07/09/22 07/25/22 Rx clonazepam 0.5 mg tablet 0.5 mg PO TID PRN Anxiety #90 tabs 07/11/22 07/25/22 Rx hydrocodone 10 mg-acetaminophen 1 tablet PO TID PRN PAIN #90 tabs 07/11/22 07/25/22 Rx 325 mg tablet Allergies Allergy/AdvReac Type Severity Reaction Status Date / Time iodine AdvReac Mild Nausea and Verified 07/25/22 07:54 Vomiting amoxicillin [From Augmentin] AdvReac Nausea and Verified 07/25/22 07:54 Vomiting clavulanic acid AdvReac Nausea and Verif
[2022-07-25 09:23] VITALS: BP 156/81; PULSE 73; RESP 27; O2SAT 97
[2022-07-25 09:33] VITALS: BP 130/51; PULSE 70; RESP 18; O2SAT 95
[2022-07-25 09:43] VITALS: BP 126/63; PULSE 72; RESP 17; O2SAT 95
== END 2022-07-25 09:48 | disposition home or self-care (01) ==
PROVIDERS: PCP Family Medicine Adolescent Medicine; Visit Provider Internal Medicine Gastroenterology
PROC: 0DJ08ZZ Inspection of Upper Intestinal Tract, Via Natural or Artificial Opening Endoscopic (ICD-10-PCS; CPT 43235; principal; 2022-07-25 09:00)
DX: Z09 Encounter for follow-up examination after completed treatment for conditions other than malignant neoplasm (principal); Z87.11 Personal history of peptic ulcer disease; Z86.010 Personal history of colon polyps; D64.9 Anemia, unspecified; I10 Essential (primary) hypertension; E11.9 Type 2 diabetes mellitus without complications; E78.5 Hyperlipidemia, unspecified; Z87.891 Personal history of nicotine dependence; Z79.84 Long term (current) use of oral hypoglycemic drugs; Z90.49 Acquired absence of other specified parts of digestive tract
CPT/HCPCS: 43239; 82948; 87081; J2704; J7120

== ENCOUNTER 2023-05-27 15:14 | Outpatient (CLI) | payer OTHER, SELFPAY ==
--- NOTE | ~2023-05-27 | MM_ITS ---
EXAMINATION: MM screening nishi BI w jamari HISTORY: Screening TECHNIQUE: Craniocaudal and mediolateral oblique 3-D tomosynthesis images were obtained and synthetic 2-D images were generated. CAD analysis was submitted and interpreted. COMPARISON: Comparison to multiple prior studies sequentially, with oldest reviewed study dated 05/08. BREAST PARENCHYMAL COMPOSITION: The breasts are heterogeneously dense, which may obscure small masses FINDINGS: There is no evidence of suspicious mass, calcification, or architectural distortion to sugg est malignancy in either breast. There has been no suspicious interval change. IMPRESSION: 1. No mammographic evidence of malignancy. 2. Recommend routine screening mammography in one year. BI-RADS Category 1: Negative Reviewed, dictated and finalized at location A.
== END 2023-05-27 15:15 | disposition home or self-care (01) ==
PROVIDERS: PCP Family Medicine Adolescent Medicine; Visit Provider Nurse Practitioner Obstetrics & Gynecology
DX: Z12.31 Encounter for screening mammogram for malignant neoplasm of breast (principal)
CPT/HCPCS: 77063; 77067

== ENCOUNTER 2023-05-30 11:39 | Outpatient (CLI) | payer OTHER, SELFPAY ==
--- NOTE | ~2023-05-30 | XR_ITS ---
Right foot Technique: AP and lateral views were obtained. Clinical History: Pain Findings: No acute fracture or dislocation is seen. Osseous alignment is anatomic. There is moderate degenerative change of the second and third PIP joints. Soft tissues are unremarkable. Impression: Moderate degenerative change of the second and third PIP joints. Reviewed, dictated and finalized at location . Impression: Moderate degenerative change of the second and third PIP joints.
--- NOTE | ~2023-05-30 | XR_ITS ---
Left foot Technique: AP and lateral views were obtained. Clinical History: Pain Findings: No acute fracture or dislocation is seen. Osseous alignment is anatomic. There is mild dege nerative change of the interphalangeal joint of the great toe. Soft tissues are unremarkable. Impression: Mild degenerative change of the interphalangeal joint of the great toe. Reviewed, dictated and finalized at location . Impression: Mild degenerative change of the interphalangeal joint of the great toe.
== END 2023-05-30 11:40 | disposition home or self-care (01) ==
PROVIDERS: PCP Family Medicine Adolescent Medicine; Visit Provider Family Medicine Adolescent Medicine
DX: M79.674 Pain in right toe(s) (principal); M79.675 Pain in left toe(s); R93.6 Abnormal findings on diagnostic imaging of limbs
CPT/HCPCS: 73620

== ENCOUNTER 2023-10-01 12:23 | Emergency (ER) | payer OTHER, SELFPAY ==
[2023-10-01] VITALS (8 sets, daily range): BP systolic 115–155; BP diastolic 55–74; PULSE 66–86; RESP 12–18; TEMP 36.5; O2SAT 93–96
--- NOTE | ~2023-10-01 | CT_ITS ---
EXAMINATION: CT abdomen pelvis w con DATE: 10/01/2023 13:42 INDICATION: Diffuse abdominal pain TECHNIQUE: Computed tomography (CT) of the abdomen and pelvis was performed with 100 cc Omnipaque 350 intravenous contrast. The dose-length product was 340.32 mGy-cm. Automated exposure control and iter ative reconstruction technique were employed. COMPARISON: None. FINDINGS: There is dependent atelectasis of the right lower lobe. There is emphysema. Heart size norm al. No significant pleural or pericardial effusion. Fatty infiltration of the liver. Gallbladder is s urgically absent. There is expected biliary dilatation. No obstructing stone or mass. Air-fluid level s are present in the small bowel and colon, nonspecific. No free air or free fluid. Moderate atherosc lerosis without aneurysm. No abdominal lymphadenopathy. Moderate lumbar spondylosis with grade 1 spon dylolisthesis at L4-5 and L5-S1. IMPRESSION: 1. Nonspecific air-fluid levels throughout the small bowel and colon without definite obstruction. Co nsider enterocolitis in the appropriate clinical setting. 2: Status post cholecystectomy with expected prominence of the bile ducts. Fatty infiltration of the liver. 3: Right lower lobe atelectasis. Cannot exclude superimposed pneumonia. 4: Emphysema. Reviewed, dictated and finalized at location B. TOR IMPRESSION: 1. Nonspecific air-fluid levels throughout the small bowel and colon without de finite obstruction. Consider enterocolitis in the appropriate clinical setting. 2: Status post cholecystectomy with expected prominence of the bile ducts. Fatt y infiltration of the liver. 3: Right lower lobe atelectasis. Cannot exclude superimposed pneumonia. 4: Emphysema.
--- NOTE | 2023-10-01 12:32 | ED.GIBLEED ---
HPI - GI Bleed General Chief complaint: GI Bleed Stated complaint: Black stool Time Seen by Provider: 10/01/23 12:31 Source: patient and family History of Present Illness HPI Narrative: 73 years old white female came to the ED by private car with her daughter from home complaining of watery diarrhea for the last 2 and half weeks, on average 5 to 4 times a day. Last night noticed that her stool turned black. Patient also complaining of diffuse generalized abdominal pain. She denies any fever, chills, vomiting. Patient been taking Imodium and the Pepto-Bismol lately patient did not see any doctor yet Related Data Home Medications Medication Instructions Recorded Confirmed ascorbic acid (vitamin C) 500 mg 500 mg PO DAILY 07/25/21 07/16/23 tablet (Vitamin C) calcium carbonate 600 mg calcium 600 mg PO DAILY 07/25/21 07/16/23 (1,500 mg) tablet (Calcium) ferrous sulfate 325 mg (65 mg 325 mg PO DAILY 07/25/21 07/16/23 iron) tablet (Iron (ferrous sulfate)) folic acid 800 mcg tablet 0.8 mg PO DAILY 04/11/22 07/16/23 Allergies Allergy/AdvReac Type Severity Reaction Status Date / Time amoxicillin [From Augmentin] AdvReac Nausea and Verified 10/01/23 12:37 Vomiting clavulanic acid AdvReac Nausea and Verified 10/01/23 12:37 [From Augmentin] Vomiting Review of Systems Review of Systems: All systems reviewed & are unremarkable except as noted in HPI and below PMFSH Past Medical History Medical History Anemia Chronic, continuous use of opioids COVID-19 Gastric ulcer History of colon polyps HTN (hypertension) Hyperlipidemia Type 2 diabetes mellitus with hyperglycemia Surgical History Surgical History History of appendectomy History of cholecystectomy History of hysterectomy History of sinus surgery History of tonsillectomy Family History Family History Father Family history of premature coronary heart disease, Onset Age: 67 Patient's father is Hypertension Mother Family history of pancreatic cancer, Onset Age: 71 Patient's mother is Sibling Family history of malignant neoplasm of breast in first degree relative Social History Social History Smoking packs per day: 0.5 Smoking cigarettes per day: 10.0 Years smoked: 10 Smoking pack-years: 5.00 Smoking status: Former smoker Tobacco type: cigarettes Second hand tobacco smoke exposure: No Additional smoking assessment comments: STATES QUIT AGE 49 Alcohol intake: never Substance use: never Substance use type: does not use Lack of Transportation: No Lack of Food: Never True Current Housing: I Have Housing Concerned About Future Housing: No Difficulty Paying Gas/Electric Bills: No Difficulty Paying for Meds: No Currently Unemployed: No Education: High School Diploma/GED Difficulty w/ Childcare or Family Care: No Living arrangements: with family Additional living arrangements comments: LIVES WITH SPOUSE - [place] Occupation/Education: retired Gender identity (if verbalized by the patient): Female Sexual Orientation (if Verbalized by the Patient): Straight or Heterosexual Spiritual care concerns: No Agree to blood products: Yes Exam Narrative: General appearance: Well-developed, well-nourished Skin: Normal color Head: Normocephalic, nontraumatic Eyes: Clear conjunctiva ENT: Oropharynx normal, ears normal, nose normal Neck: Supple, nontender Chest and respiratory: Airway patent, no respiratory distress, no accessory muscle use Heart: Regular rate/rhythm Abdomen: Soft, diffuse tenderness, distended, quiet bowel sounds Vascular: Normal peripheral pulses, normal capillary refill. Musculoskeletal: Normal range of motion, nontender back Neurologic
[2023-10-01 12:49] LABS: Basophils Absolute Auto 0.1 K/mm3 (0.0-0.1); Basophils Percent Auto 0.7 % (0.2-1.2); Eosinophils Absolute Auto 0.5 K/mm3 (0-0.3); Eosinophils Percent Auto 5.1 % (0-4.4); Hematocrit 45.1 % (37.0-47.0); Immature Granulocyte Absolute 0.01 K/mm3 (0.00-0.031); Immature Granulocyte Percent A 0.1 % (0-0.5); Lymphocytes Absolute Auto 2.54 K/mm3 (0.9-3.2); Lymphocytes Percent Auto 28.3 % (18.3-44.2); Mean Corpuscular Hemoglobin 31.4 pg (26-34); Mean Corpuscular Volume 101.1 fl (80-100); Mean Platelet Volume 10.5 fl (7.4-10.4); Monocytes Absolute Auto 0.9 K/mm3 (0.1-0.6); Monocytes Percent Auto 10.3 % (2.6-8.5); Neutrophils Percent Auto 55.5 % (45.5-73.1); Platelet Count Result 240 k/mm3 (150-375); Red Blood Count 4.46 M/mm3 (4.2-5.4); Red Cell Distribution Width 13.5 % (11.5-14.5)
[2023-10-01 12:59] LABS: Lactic Acid Reflex 3.9 mmol/L (0.7-2.0)
[2023-10-01 13:00] LABS: Alanine Aminotransferase 18 U/L (6-35); Albumin Level 4.1 g/dL (3.5-5.1); Alkaline Phosphatase 100 U/L (38-126); Anion Gap 11 mmol/L (8-16); Aspartate Amino Transferase 33 U/L (14-36); Bilirubin,Total 0.5 mg/dL (0.2-1.3); Blood Urea Nitrogen 4 mg/dL (7-17); Calcium 8.8 mg/dL (8.4-10.2); Carbon Dioxide 27 mmol/L (22-30); Chloride 102 mmol/L (98-107); Estimated CRCL calculation 63 ml/min; Estimated Glomerular Filt Rate > 60; Glucose 170 mg/dL (65-110); Potassium 3.1 mmol/L (3.4-5.0); Sodium 140 mmol/L (137-145)
[2023-10-01 13:02] LABS: Prothrombin Time 13.3 Seconds (11.1-14.7)
[2023-10-01 13:03] LABS: Partial Thromboplastin Time 39.1 SECONDS (22.3-36.8)
[2023-10-01] MEDS: SODIUM CHLORIDE 0.9% IV 1,000 ML 999 ML IV CONT (13:08)
[2023-10-01] MEDS: ONDANSETRON INJ 4 MG/2 ML VIAL IV PUSH ×2 (13:22→13:23)
[2023-10-01] MEDS: diphenhydrAMINE HCl INJ 50 MG/ML VIAL IV PUSH (13:24)
[2023-10-01] MEDS: MORPHINE SULFATE (*CRX) 4 MG/ML INJ IV PUSH (13:25)
[2023-10-01 15:47] LABS: Reflex Lactic Acid Yes or No Add Lactic
== END 2023-10-01 15:53 | disposition home or self-care (01) ==
PROVIDERS: Emergency Provider Emergency Medicine; PCP Family Medicine Adolescent Medicine
DX: R19.7 Diarrhea, unspecified (principal); T47.6X5A Adverse effect of antidiarrheal drugs, initial encounter; E87.6 Hypokalemia; I10 Essential (primary) hypertension; E78.5 Hyperlipidemia, unspecified; E11.9 Type 2 diabetes mellitus without complications; Z86.16 Personal history of COVID-19; Z86.2 Personal history of diseases of the blood and blood-forming organs and certain disorders involving the immune mechanism; Z86.010 Personal history of colon polyps; Z87.891 Personal history of nicotine dependence; Z90.49 Acquired absence of other specified parts of digestive tract; Z90.710 Acquired absence of both cervix and uterus; Z79.84 Long term (current) use of oral hypoglycemic drugs; R91.8 Other nonspecific abnormal finding of lung field; J43.9 Emphysema, unspecified
CPT/HCPCS: 36415; 74177; 80053; 83605; 85025; 85610; 85730; 86850; 86900; 86901; 96361; 96374; 96375; 99284; J1200; J2270; J2405; J7030; Q9967

== ENCOUNTER 2023-10-24 13:13 | Outpatient (CLI) | payer OTHER, SELFPAY ==
--- NOTE | ~2023-10-24 | XR_ITS ---
EXAMINATION: XR abdomen/kub 1V DATE: 10/24/2023 13:35 INDICATION: Diarrhea, unspecified. Abdominal distention. TECHNIQUE: A supine view of the abdomen on 2 radiographs was obtained. COMPARISON: CT abdomen and pelvis 10/01/2023 FINDINGS: There are no dilated loops of bowel. There is a small volume of stool in the colon. Surgica l clips in the right upper quadrant are likely from cholecystectomy. There is a phlebolith in left pe lvis. IMPRESSION: 1. Normal bowel gas pattern. Reviewed, dictated and finalized at location A. [employer] [employer]
== END 2023-10-24 13:14 | disposition home or self-care (01) ==
PROVIDERS: PCP Family Medicine Adolescent Medicine; Visit Provider Nurse Practitioner Family
DX: R19.7 Diarrhea, unspecified (principal)
CPT/HCPCS: 74018

== ENCOUNTER 2023-11-14 01:14 | Day surgery (SDC) | payer OTHER, SELFPAY ==
[2023-11-05 15:07] VITALS: BMI 21.2
--- NOTE | 2023-11-12 09:34 | SUR.PREOP ---
Patient called regarding upcoming procedure. Voicemail left regarding appointment times.
--- NOTE | 2023-11-14 07:22 | PM.HPGS ---
History of Present Illness History of Present Illness Consent: Risks, benefits, and alternatives have been discussed and questions answered. Patient agrees to proceed with procedure. Chief complaint: diarrhea,abnormal weight loss,epigastric pain, Narrative: Yamile Richardson is a 73 year old female with several medical problems. She has had diarrhea for a few months. Stool studies were all negative and a trial of metronidazole was not effective. Stool for occult blood was positive. She was started on cholestyramine 4 g twice a day which has helped somewhat she does take metformin 1000 mg b.i.d.. Recently she has also developed upper abdominal pain with postprandial bloating to the point that she is uncomfortable she lays around most of the day . She did have an EGD 2 years ago that showed both gastric and duodenal ulcers. A follow-up showed that they had healed. She has lost a total of 10 lb. Review of Systems Review of Systems: All systems reviewed & are unremarkable except as noted in HPI and below PMFSH Past Medical History Medical History Anemia Cellulitis Chronic, continuous use of opioids COVID-19 Epigastric pain Gastric ulcer History of colon polyps HTN (hypertension) Hyperlipidemia Positive fecal occult blood test Type 2 diabetes mellitus with hyperglycemia Weight loss Surgical History Surgical History History of appendectomy History of cholecystectomy History of hysterectomy History of sinus surgery History of tonsillectomy Family History Family History Father Family history of premature coronary heart disease, Onset Age: 67 Patient's father is Hypertension Mother Family history of pancreatic cancer, Onset Age: 71 Patient's mother is Sibling Family history of malignant neoplasm of breast in first degree relative Social History Social History Smoking packs per day: 0.5 Smoking cigarettes per day: 10.0 Years smoked: 10 Smoking pack-years: 5.00 Smoking status: Former smoker Tobacco type: cigarettes Second hand tobacco smoke exposure: No Additional smoking assessment comments: STATES QUIT AGE 49 Alcohol intake: never Substance use: current Substance use type: opiates Other substance usage details: hydrocodone7.5mg/acetaminophin 325mg QID prn pain Lack of Transportation: No Lack of Food: Never True Current Housing: I Have Housing Concerned About Future Housing: No Difficulty Paying Gas/Electric Bills: No Difficulty Paying for Meds: No Currently Unemployed: No Education: High School Diploma/GED Difficulty w/ Childcare or Family Care: No Living arrangements: with family Additional living arrangements comments: LIVES WITH SPOUSE - [place] Occupation/Education: retired Gender identity (if verbalized by the patient): Female Sexual Orientation (if Verbalized by the Patient): Straight or Heterosexual Spiritual care concerns: No Agree to blood products: Yes Meds Home Medications and Allergies Home Medications Medication Instructions Recorded Confirmed Type ferrous sulfate 325 mg (65 mg 325 mg PO DAILY 07/25/21 11/14/23 History iron) tablet (Iron (ferrous sulfate)) glimepiride 1 mg tablet 1 mg PO QAM #90 tabs 02/07/23 11/14/23 Rx lisinopril 10 mg tablet (Zestril) 10 mg PO DAILY #90 tabs 02/07/23 11/14/23 Rx metoprolol succinate 100 mg 100 mg PO DAILY #90 tabs 02/07/23 11/14/23 Rx tablet,extended release 24 hr venlafaxine 150 mg 150 mg PO HS #90 caps 02/07/23 11/14/23 Rx capsule,extended release 24 hr (Effexor XR) metformin 500 mg tablet 1,000 mg PO BID #360 tabs 06/22/23 11/14/23 Rx blood sugar diagnostic (Contour #100 ea 07/16/23 11/14/23 Rx Next Test Strips) simvastat
[2023-11-14 08:14] LABS: Glucose Point of Care 115 mg/dl (65-105)
[2023-11-14 08:17] VITALS: BP 119/56; PULSE 77; RESP 16; TEMP 35.7; O2SAT 94
[2023-11-14] MEDS: LACTATED RINGERS 1,000 ML 150 ML IV CONT (08:20)
--- NOTE | 2023-11-14 09:20 | WPDANESEPPF ---
Anes - Initial Pre Proc Eval Procedure: Operation Date: 11/14/23 09:30 Proposed Procedures p Esophagogastroduodenoscopy & Colonoscopy - Jamal Marshall MD Date/Time: 11/14/23 09:20 Surgeon: Jamal Marshall MD Pre Op Diagnosis: diarrhea,abnormal weight loss,epigastric pain, Patient Data Age: 73 Gender: F Height: 1.75 m Weight: 64.1 kg Last Vital Signs Temp 96.3 F L 11/14/23 08:17 Pulse 77 11/14/23 08:17 Resp 16 11/14/23 08:17 BP 119/56 L 11/14/23 08:17 Pulse Ox 94 11/14/23 08:17 O2 Del Method Room Air 11/14/23 08:17 Allergies Allergy/AdvReac Type Severity Reaction Status Date / Time amoxicillin [From Augmentin] AdvReac Nausea and Verified 11/14/23 08:14 Vomiting clavulanic acid AdvReac Nausea and Verified 11/14/23 08:14 [From Augmentin] Vomiting Home Medications Medication Instructions Recorded Confirmed Type ferrous sulfate 325 mg (65 mg 325 mg PO DAILY 07/25/21 11/14/23 History iron) tablet (Iron (ferrous sulfate)) glimepiride 1 mg tablet 1 mg PO QAM #90 tabs 02/07/23 11/14/23 Rx lisinopril 10 mg tablet (Zestril) 10 mg PO DAILY #90 tabs 02/07/23 11/14/23 Rx metoprolol succinate 100 mg 100 mg PO DAILY #90 tabs 02/07/23 11/14/23 Rx tablet,extended release 24 hr venlafaxine 150 mg 150 mg PO HS #90 caps 02/07/23 11/14/23 Rx capsule,extended release 24 hr (Effexor XR) metformin 500 mg tablet 1,000 mg PO BID #360 tabs 06/22/23 11/14/23 Rx blood sugar diagnostic (Contour #100 ea 07/16/23 11/14/23 Rx Next Test Strips) simvastatin 10 mg tablet (Zocor) 10 mg PO DAILY #90 tabs 08/03/23 11/14/23 Rx mirtazapine 30 mg tablet (Remeron) 30 mg PO HS #90 tabs 08/05/23 11/14/23 Rx gabapentin 800 mg tablet 800 mg PO QID #360 tabs 09/01/23 11/14/23 Rx (Neurontin) clonazepam 1 mg tablet 1 mg PO BID PRN shakes #60 tabs 09/04/23 11/14/23 Rx omeprazole 20 mg capsule,delayed 20 mg PO DAILY #30 caps 09/15/23 11/14/23 Rx release cholestyramine (with sugar) 4 gram 4 g PO BID #348.6 grams 10/14/23 11/14/23 Rx oral powder diphenoxylate-atropine 2.5 1 tablet PO .every 4 hours PRN 11/03/23 11/14/23 Rx mg-0.025 mg tablet (Lomotil) diarrhea #30 tabs triamcinolone acetonide 0.1 % 1 applic topical HS 11/05/23 11/14/23 History topical cream [id number] See Rx Instructions PO .COMPLEX 11/06/23 11/14/23 Rx 24,000-76,000-120,000 unit #240 caps capsule,delayed rel (Creon) hydrocodone 7.5 mg-acetaminophen 1 tablet PO QID PRN pain #120 tabs 11/11/23 11/14/23 Rx 325 mg tablet Laboratory Tests 11/14/23 08:12 POC Capillary Glucose 115 H mg/dl (65-105) Patient hx anesthesia problems: none Family hx anesthesia problems: none Results Review: All pre-operative results and documents have been reviewed as part of the pre-operative evaluation. [facility] Past Medical History Medical History Anemia Cellulitis Chronic, continuous use of opioids COVID-19 Epigastric pain Gastric ulcer History of colon polyps HTN (hypertension) Hyperlipidemia Positive fecal occult blood test Type 2 diabetes mellitus with hyperglycemia Weight loss Surgical History Surgical History History of appendectomy History of cholecystectomy History of hysterectomy History of sinus surgery History of tonsillectomy Family History Family History Father Family history of premature coronary heart disease, Onset Age: 67 Patient's father is Hypertension Mother Family history of pancreatic cancer, Onset Age: 71 Patient's mother is Sibling Family history of malignant neoplasm of breast in first degree relative Social History Social History Smoking packs per day: 0.5 Smoking cigarettes per day: 10.0
--- NOTE | 2023-11-14 09:33 | SUR.OPER ---
EGD: COLON: Start 932
[2023-11-14 09:50] VITALS: BP 107/50; PULSE 72; RESP 19; O2SAT 96
[2023-11-14 10:00] VITALS: BP 98/85; PULSE 72; RESP 19; O2SAT 96
[2023-11-14 10:10] VITALS: BP 112/65; PULSE 72; RESP 22; O2SAT 95
== END 2023-11-14 10:35 | disposition home or self-care (01) ==
PROVIDERS: PCP Family Medicine Adolescent Medicine; Visit Provider Internal Medicine Gastroenterology
PROC: 0DJ08ZZ Inspection of Upper Intestinal Tract, Via Natural or Artificial Opening Endoscopic (ICD-10-PCS; CPT 43235; principal; 2023-11-14 09:30)
DX: K52.89 Other specified noninfective gastroenteritis and colitis (principal); K59.1 Functional diarrhea; R10.13 Epigastric pain; K21.9 Gastro-esophageal reflux disease without esophagitis; I10 Essential (primary) hypertension; E78.5 Hyperlipidemia, unspecified; E11.9 Type 2 diabetes mellitus without complications; Z87.891 Personal history of nicotine dependence
CPT/HCPCS: 43239; 45380; 82948; 88305; J2001; J2704; J7120

== ENCOUNTER 2024-03-24 13:54 | Outpatient (CLI) | payer OTHER, SELFPAY ==
--- NOTE | ~2024-03-24 | XR_ITS ---
EXAMINATION: XR abdomen/kub 1V DATE: 03/24/2024 14:20 INDICATION: Diarrhea, unspecified. TECHNIQUE: A supine view of the abdomen on 2 radiographs was obtained. COMPARISON: Abdomen radiographs 10/24/2023, CT abdomen and pelvis 10/01/2023 FINDINGS: There are no dilated loops of bowel. There is a moderate volume of stool in the colon. Surg ical clips in the right upper quadrant are likely from cholecystectomy. There are phleboliths in the pelvis. IMPRESSION: 1. Normal bowel gas pattern. Reviewed, dictated and finalized at location E.
[2024-03-24 15:58] LABS: Hematocrit 46.5 % (37.0-47.0); Hemoglobin 14.8 g/dL (12.0-15.0); Mean Corpuscular HGB Conc 31.8 g/dl (32-36); Mean Corpuscular Hemoglobin 31.8 pg (26-34); Mean Corpuscular Volume 99.8 fl (80-100); Mean Platelet Volume 11.3 fl (7.4-10.4); Platelet Count Result 294 k/mm3 (150-375); Red Blood Count 4.66 M/mm3 (4.2-5.4); Red Cell Distribution Width 12.8 % (11.5-14.5); White Blood Count 11.5 K/mm3 (4.5-10.0)
[2024-03-24 16:10] LABS: Alanine Aminotransferase 35 U/L (6-35); Albumin Level 4.5 g/dL (3.5-5.1); Alkaline Phosphatase 148 U/L (38-126); Anion Gap 6 mmol/L (4-12); Aspartate Amino Transferase 40 U/L (14-36); Bilirubin,Total 0.5 mg/dL (0.2-1.3); Blood Urea Nitrogen 14 mg/dL (7-17); Calcium 9.8 mg/dL (8.4-10.2); Carbon Dioxide 32 mmol/L (22-30); Chloride 99 mmol/L (98-107); Estimated Glomerular Filt Rate > 60; Glucose 160 mg/dL (65-110); Potassium 4.2 mmol/L (3.4-5.0); Sodium 137 mmol/L (137-145)
== END 2024-03-24 13:55 | disposition home or self-care (01) ==
LOC: ANHIMG 13:56
PROVIDERS: PCP Family Medicine Adolescent Medicine; Visit Provider Nurse Practitioner Family
DX: K59.00 Constipation, unspecified (principal); R19.7 Diarrhea, unspecified
CPT/HCPCS: 36415; 74018; 80053; 85027

== ENCOUNTER 2024-04-09 10:53 | Emergency (ER) | payer OTHER, SELFPAY ==
[2024-04-09] VITALS (14 sets, daily range): BP systolic 136–161; BP diastolic 68–96; PULSE 61–85; RESP 13–22; TEMP 36.7–36.8; O2SAT 94–96
[2024-04-09 11:07] LABS: Glucose Point of Care 377 mg/dl (65-105)
[2024-04-09] MEDS: SODIUM CHLORIDE 0.9% IV 1,000 ML 999 ML (11:23)
[2024-04-09] MEDS: ONDANSETRON INJ 4 MG/2 ML VIAL (11:24)
[2024-04-09 11:28] LABS: Basophils Absolute Auto 0.1 K/mm3 (0.0-0.1); Basophils Percent Auto 0.8 % (0.2-1.2); Eosinophils Absolute Auto 0.6 K/mm3 (0-0.3); Eosinophils Percent Auto 5.5 % (0-4.4); Hematocrit 45.1 % (37.0-47.0); Hemoglobin 14.8 g/dL (12.0-15.0); Immature Granulocyte Absolute 0.03 K/mm3 (0.00-0.031); Immature Granulocyte Percent A 0.3 % (0-0.5); Lymphocytes Absolute Auto 2.77 K/mm3 (0.9-3.2); Lymphocytes Percent Auto 24.1 % (18.3-44.2); Mean Corpuscular HGB Conc 32.8 g/dl (32-36); Mean Corpuscular Hemoglobin 32.1 pg (26-34); Mean Corpuscular Volume 97.8 fl (80-100); Monocytes Absolute Auto 1.4 K/mm3 (0.1-0.6); Monocytes Percent Auto 12.1 % (2.6-8.5); Neutrophils Absolute Auto 6.6 K/mm3 (1.3-6.7); Neutrophils Percent Auto 57.2 % (45.5-73.1); Platelet Count Result 291 k/mm3 (150-375); Red Blood Count 4.61 M/mm3 (4.2-5.4); Red Cell Distribution Width 12.6 % (11.5-14.5); White Blood Count 11.5 K/mm3 (4.5-10.0)
[2024-04-09 11:38] LABS: Alanine Aminotransferase 28 U/L (6-35); Albumin Level 4.7 g/dL (3.5-5.1); Alkaline Phosphatase 168 U/L (38-126); Anion Gap 10 mmol/L (4-12); Aspartate Amino Transferase 36 U/L (14-36); Bilirubin,Total 0.5 mg/dL (0.2-1.3); Blood Urea Nitrogen 15 mg/dL (7-17); Calcium 9.2 mg/dL (8.4-10.2); Carbon Dioxide 25 mmol/L (22-30); Chloride 100 mmol/L (98-107); Estimated CRCL calculation 73 ml/min; Estimated Glomerular Filt Rate > 60; Glucose 367 mg/dL (65-110); Magnesium 2.1 mg/dL (1.6-2.3); Phosphorus 3.6 mg/dL (2.5-4.5); Potassium 4.4 mmol/L (3.4-5.0); Sodium 135 mmol/L (137-145)
[2024-04-09 11:44] LABS: Beta-Hydroxybutyrate/Acetoacetate 0.09 mmol/L (0.02-0.27)
[2024-04-09 13:03] LABS: Appearance Urine Clear (Clear); Bilirubin Urine Negative (Negative); Blood Urine Negative (Negative); Color Urine Yellow (Yellow); Glucose Urine UA 3+ mg/dL (Negative); Ketones Urine Negative (Negative); Leukocyte Esterase Ur Negative LEU/UL (Negative); Nitrate Urine Negative (Negative); Protein Urine Negative (Negative); Specific Grav Ur 1.014 (1.001-1.035); Urobilinogen Urine 0.2 mg/dL (<2.0)
[2024-04-09 13:09] LABS: Add Urine Microscopic? NO
[2024-04-09] MEDS: KETOROLAC 15 MG/ML VIAL (*BKC) IV PUSH (13:10)
[2024-04-09] MEDS: SODIUM CHLORIDE 0.9% IV 1,000 ML 999 ML IV CONT (13:10)
[2024-04-09 14:58] LABS: Glucose Point of Care 172 mg/dl (65-105)
--- NOTE | 2024-04-09 15:01 | ED.GENADULT ---
HPI - General Adult General Chief complaint: Recheck/Abnormal Lab/Rx Stated complaint: hyperglycemia Time Seen by Provider: 04/09/24 12:43 History of Present Illness HPI narrative: 73 old female present to the emergency department for evaluation of hyperglycemia. Patient is a known diabetic and had recently been on metformin and glyburide but the left right was stopped and patient was started on insulin. Patient noticed that her blood sugars this morning were running high and that she had blood sugars over 400. Patient states he did have some mild headache with this. Related Data Home Medications Medication Instructions Recorded Confirmed ferrous sulfate 325 mg (65 mg 325 mg PO DAILY 07/25/21 03/24/24 iron) tablet (Iron (ferrous sulfate)) triamcinolone acetonide 0.1 % 1 applic topical HS 11/05/23 03/24/24 topical cream linaclotide 145 mcg capsule 145 mcg PO DAILY 04/08/24 (Linzess) Allergies Allergy/AdvReac Type Severity Reaction Status Date / Time iodine Allergy Nausea and Verified 04/09/24 11:02 Vomiting amoxicillin [From Augmentin] AdvReac Nausea and Verified 04/09/24 10:54 Vomiting clavulanic acid AdvReac Nausea and Verified 04/09/24 10:54 [From Augmentin] Vomiting Review of Systems Review of Systems: All systems reviewed & are unremarkable except as noted in HPI and below PMFSH Past Medical History Medical History (Updated 04/09/24 @ 15:03 by Gonzalo Jackson MD) Anemia Cellulitis Chronic, continuous use of opioids COVID-19 Epigastric pain Gastric ulcer GERD (gastroesophageal reflux disease) History of colon polyps HTN (hypertension) Hyperlipidemia Lymphocytic colitis Positive fecal occult blood test Type 2 diabetes mellitus with hyperglycemia Weight loss Surgical History Surgical History History of appendectomy History of cholecystectomy History of hysterectomy History of sinus surgery History of tonsillectomy Family History Family History Father Family history of premature coronary heart disease, Onset Age: 67 Patient's father is Hypertension Mother Family history of pancreatic cancer, Onset Age: 71 Patient's mother is Sibling Family history of malignant neoplasm of breast in first degree relative Social History Social History Smoking packs per day: 0.5 Smoking cigarettes per day: 10.0 Years smoked: 10 Smoking pack-years: 5.00 Smoking status: Former smoker Tobacco type: cigarettes Second hand tobacco smoke exposure: No Additional smoking assessment comments: STATES QUIT AGE 49 Alcohol intake: never Substance use: current Substance use type: opiates Other substance usage details: hydrocodone7.5mg/acetaminophin 325mg QID prn pain Lack of Transportation: No Lack of Food: Never True Current Housing: I Have Housing Concerned About Future Housing: No Difficulty Paying Gas/Electric Bills: No Difficulty Paying for Meds: No Currently Unemployed: No Education: High School Diploma/GED Difficulty w/ Childcare or Family Care: No Living arrangements: with family Additional living arrangements comments: LIVES WITH SPOUSE - [place] Occupation/Education: retired Gender identity (if verbalized by the patient): Female Sexual Orientation (if Verbalized by the Patient): Straight or Heterosexual Spiritual care concerns: No Agree to blood products: Yes Exam Narrative: APPEARANCE: Well appearing, no pain, no distress, well-nourished. HEAD: normocephalic, atraumatic. EYES: PERRLA/EOMI, conjunctivae clear. NOSE: Normal no drainage EARS:TMS clear with good light reflex. THROAT: Pharynx clear, no exudate. NECK: Supple. No adenopathy, no masses. RESPIRATORY: Airway patent, respirations nonlabored. Clear to auscultation b
== END 2024-04-09 15:40 | disposition home or self-care (01) ==
PROVIDERS: Family Medicine; Emergency Provider Emergency Medicine; PCP Family Medicine Adolescent Medicine
DX: E11.65 Type 2 diabetes mellitus with hyperglycemia (principal); I10 Essential (primary) hypertension; E78.5 Hyperlipidemia, unspecified; K21.9 Gastro-esophageal reflux disease without esophagitis; D64.9 Anemia, unspecified; Z87.891 Personal history of nicotine dependence; Z79.891 Long term (current) use of opiate analgesic; Z79.4 Long term (current) use of insulin; Z79.84 Long term (current) use of oral hypoglycemic drugs
CPT/HCPCS: 36415; 80053; 81003; 82010; 82948; 83735; 84100; 85025; 96361; 96374; 96375; 99284; J1885; J2405; J7030

== ENCOUNTER 2025-02-22 15:07 | Outpatient (CLI) | payer OTHER, SELFPAY ==
--- NOTE | ~2025-02-22 | MM_ITS ---
EXAMINATION: MM screening [facility] BI w jamari HISTORY: Screening TECHNIQUE: Craniocaudal and mediolateral oblique 3-D tomosynthesis images were obtained and synthetic 2-D images were generated. CAD analysis was submitted and interpreted. COMPARISON: Comparison to multiple prior studies sequentially, with oldest reviewed study dated 05/08. BREAST PARENCHYMAL COMPOSITION: Dense: The breasts are heterogeneously dense, which may obscure small masses FINDINGS: Benign-appearing radiolucent mass in the mid outer aspect of the right breast, middle third is unchanged. There is no evidence of suspicious mass, calcification, or architectural distortion to suggest malignancy in either breast. There has been no suspicious interval change. IMPRESSION: 1. No mammographic evidence of malignancy. 2. Recommend routine screening mammography in one year. BI-RADS Category 2: Benign finding(s). Reviewed, dictated and finalized at location B.
--- NOTE | ~2025-02-22 | DEXA_ITS ---
Bone Density Report Name: MEREDITH NEFF Age: 74 Sex: Female Ethnicity: White Date of : 1950 Indication: postmenopausal; screening for osteoporosis; height loss; hysterectomy; Referring Provider: KEYLA UMAÑA Study: Bone densitometry was performed. Exam Date: February 22, 2025 Accession number: [id number] Bone Density: Region BMD T-score Z-score Classification AP Spine(L1-L4) 1.001 -0.4 2.0 Normal Femoral Neck (Left) 0.728 -1.1 1.0 Osteopenia Total Hip (Left) 0.865 -0.6 1.2 Normal Femoral Neck (Right) 0.702 -1.3 0.8 Osteopenia Total Hip (Right) 0.838 -0.8 1.0 Normal Total Hip Mean 0.852 -0.7 1.1 Normal World Health Organization criteria for BMD impression classify patients as: Normal (T-score at or above -1.0), Osteopenia (T-score between -1.0 and -2.5), or Osteoporosis (T-score at or below -2.5). 10-year Fracture Risk(1): Major Osteoporotic Fracture 10% Hip Fracture 2.0% Reported Risk Factors: [place] (), Neck BMD=0.702, BMI=22.5 (1) FRAX(R) Version 3.08. Fracture probability calculated for an untreated patient. Fracture probability may be lower if the patient has received treatment. Previous Exams: Region Exam Age BMD T-score BMD Change BMD Change Date g/cm2 vs Baseline vs Previous Total Hip(Left) 02/22/2025 74 0.865 -0.6 -0.110 (-11.3% -0.110 (-11.3% 01/04/2019 68 0.975 0.3 Total Hip(Right) 02/22/2025 74 0.838 -0.8 -0.091 (-9.8%) -0.091 (-9.8%) 01/04/2019 68 0.930 -0.1 *Denotes significance at 95% confidence level, LSC for Total Hip = 0.027 g/cm2 Clinical Information Provided by Patient: Has used the following medications: Vitamin D, Calcium Has the following medical conditions: Hysterectomy Patient maximum height was 71 Menopause Age: 27 No regular weight bearing exercise Does not regularly consume dairy products Drinks caffeinated beverages Onset of menses at age 15 Number of children 2 Impression: The patient has low bone mass, based on the Right Femoral Neck T-score. The patient has an estimated ten-year risk of hip fracture of 2% and an estimated ten-year risk of major fracture of 10%, based on the WHO FRAX algorithm. The BMD for the Total Hip(Left) decreased, changing by -11.3% since the last DXA exam. The BMD for the Total Hip(Right) decreased, changing by -9.8% since the last DXA exam. Discussion: BONE DENSITY IS LOW AT ONE OR MORE SKELETAL SITES. This patient's lowest T-score is low at one or more skeletal sites. It meets the World Health Organization's (WHO) criteria for ?low bone mass? (T-score between -1.0 and -2.5). The patient's 10-year risk of fracture as calculated by FRAX is less than the threshold where pharmacological therapy is recommended by the National Osteoporosis Foundation (NOF). However, all treatment decisions require clinical judgment and consideration of individual patient factors, including patient preferences, comorbidities, previous drug use, risk factors not captured in the FRAX model (e.g., frailty, falls, vitamin D deficiency, increased bone turnover, interval significant decline in bone density) and possible under or overestimation of fracture risk by FRAX. The patient should follow a healthful lifestyle (good nutrition with adequate calcium and vitamin D, and appropriate weight-bearing exercise). Follow-Up: Consider repeating this study in 2 years to reassess this patient's status, or sooner if there is some new clinical indication. Reported by: ALCIDES on 02/22/2025 3:52:00 PM. Reviewed, dictated and finalized at location AFransisca ESCALERA
--- OUTSIDE RECORDS SUMMARY | 2025-02-22 16:15 | XMS_ITS | Data Portability ---
Author Organization 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 Patient will come back in a year unless there are new symptoms. Suggest Calcium with Vitamin D if not eating in diet. Patient advised to get annual flu shot. Recommend yearly physicals and preform monthly breast exams. Genetic testing is available for patients with family history of cancer. Engage in safe sexual practices, use condoms. Encouraged to have daily exercise. Avoid tobacco and illicit drugs, moderation of alcohol. If BMI greater than 25 dietary consult advised. If you have any questions please call or email. Not available 10/12/2021 15:26:14 04/03/2023 04/03/2023 Annual gynecological exam performed. Patient will come back in a year unless there are new symptoms. Not available 04/03/2023 15:25:05 Plan of Treatment Reminders Order Date Submit Date Provider Last Modified By Organization Details Last Modified Time Details Appointments None recorded. Lab urinalysis , dipstick 2020 021 [facility], [address], [place], [address], 10:23:29 Referral None recorded. Procedures None recorded. Surgeries None recorded. Imaging MAMMO, screening, bilateral 2022 023 JAMIE Gary [address], [place], [address], 3 05:00:49 Medication Orders imiquimod 5 %-tretinoi n 0.05 %-levoceti rizine 1 % topical gel 2019 021 [email or web address] 8 [id number], [address] [facility] [address], [place], [place], [id number], 17:55:30 Patient TargetsNo targets recorded. Patient InstructionsNo instructions recorded. Reason for Referral None Reported. Results Created Date Observation Date Name Description Value Unit Range Abnormal Flag Note LastModifiedBy Organization Detail LastModifiedTime 03/27/2003/27/2021 cultu re, urine result report SEE RESULT S BELOW Test: Cultu re: Urine Speci men Sourc e: Urine Voide d Speci men Type: Urine Speci men Date: 2020 11:10 AM Resul t Date: 2020 5:45 AM Resul t Statu s: Final resul t Abnor mal: No Resul ting Lab: [facility] [address] [facility] [address] Tel: CULTU RE ----- ----- ----- --- No growt h in 1 day (dete ction level of 10,00 0 colon ies / ml.) Not Available [facility] (Lab) [address] [facility] [facility], [place], [address], 03/29/2021 11:04:50 03/27/2003/27/2021 urina lysis , dipst ick Leukocytes trace Not Available Juanita cuellar [address], [place], [address], 03/27/2021 10:23:14 Result Notes None recorded. 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 findings;R ecorded Elsewhere: No Locatio n: [facility] rce: EHR Chroni c: N Practice ID: 0001 Billa ble Time: 10:30:00 AM Not Available [facility] 0 21:16:30 Microscop ic hematuria 864931678 Active 2011 MICROSCOPI C HEMATURIA; Recorded Elsewhere: No Locatio n: [facility] rce: EHR Chroni c: N Practice ID: 0001 Billa ble Time: 10:00:00 AM Not Available [facility] 0 21:16:31 Mammograp hy abnormal 869046395 Active 2014 Unspecifie d abnormal mammogram; Recorded Elsewhere: No Locatio n: [facility] rce: EHR Chroni c: N Practice ID: 0001 Billa ble Time: 04:21:16 PM Not Available [facility] 0 21:16:31 Specializ ed medical examinati on Active 2011 Gynecologi michael Examinatio n;Recorded Elsewhere: No Locatio n: [facility] rce: EHR Chroni c: N Practice ID: 0001 Billa ble Time: 10:00:00 AM Not Available [facility] 0 21:16:31 Screening for malignant neoplasm of rectum Active 2011 Screening for malignant neoplasms of the rectum;Rec orded Elsewhere: No Locatio n: [facility] rce: EHR Chroni c: N Practice ID: 0001 Billa ble Time: 10:00:00 AM Not Available [facility] 0 21:16:[address] Concept Active 2017 Encntr for general adult medical exam w/o abnormal findings;R ecorded Elsewhere: No Locatio n: [facility] rce: EHR Chroni c: N Practice ID: 0001 Billa ble Time: 10:30:00 AM Not Available [facility] 0 21:16:31 Proteinur ia 13488600 Active 2013 Proteinuri a;Practice ID: 0001 Not Available [facility] 0 21:16:31 Adult health examinati on Active 2014 Routine general medical examinatio n at a health care facility;Noemi mcgeetice ID: 0001 Not Available [facility] 0 21:16:32 Menopause present 942533709 Active 2018 Menopausal and female climacteri c states;Rec orded Elsewhere: No Locatio n: [facility] rce: EHR Chroni c: N Practice ID: 0001 Billa ble Time: 01:15:00 PM Not Available [facility] 0 21:16:32 Problem Notes None recorded. Procedures Surgical History Date Name Laterality Status Provider Name and Address Organization Details Recorded Time 04/03/20 23 Date of Last Pap Smear completed Marcia Walker [facility] 04/03/2023 19:46:16 03/10/20 23 perinasal sinusotomy completed Jillian Jacobsen [facility] [address], [place], [address], [facility] 04/03/2023 15:29:59 03/11/20 22 endoscopy completed Jillian Jacobsen [facility] [address], [place], [address], [facility] 04/03/2023 15:30:36 11/12/19 22 Colonoscopy completed Jillian Jacobsen [facility] [address], [place], [address], [facility] 04/03/2023 15:30:13 01/07/20 20 Date of Last Mammogram completed Marcia Walker [facility] 10/22/2021 12:59:20 01/04/20 19 Most Recent Bone Density completed Marcia Walker [facility] 10/22/2021 13:00:59 11/10/19 12 completed [facility] 07/18/2020 12:53:42 11/10/19 08 Colonoscopy completed [facility] 10/22/2021 13:03:45 11/10/19 06 Colonoscopy completed [facility] 10/22/2021 13:03:52 11/10/18 90 Hysteroscopy completed [facility] 07/18/2020 12:52:47 11/10/18 85 laser procedure completed [facility] 07/18/2020 12:51:54 11/10/18 80 Dilation and Curettage completed [facility] 07/18/2020 12:52:08 11/10/18 77 ligation of bilateral fallopian tubes completed [facility] 07/18/2020 12:51:15 Imaging Results None recorded. Procedure Notes None recorded. Medical Equipment None Reported. Allergies Allergen ID Allergen Name Allergen Category Reaction Reaction Severity Criticality Documentation Date Start Date Code Code System Note Provider Name and Address Organization Details Recorded Time 1960 iodine medicatio n Not available Not available Not available 07/18/2020 5933 RxNorm Marcia Walker [facility] 0 12:42:05 1961 amoxicill in medicatio n Not available Not available Not available 07/18/2020 723 RxNorm Marcia Walker [facility] 0 12:42:11 Medications Name Sig Start Date Stop Date Status Note LastModified by Organization Details LastModified Time metformin 500 mg tablet TAKE 2 TABLETS BY MOUTH TWICE DAILY active Not Available Not Available No t Available primidone 50 mg tablet active Not Available Not Available Not Available venlafaxi ne ER 37.5 mg capsule,e xtended release 24 hr take 1 capsule by oral route every day with food active Prescrib ed Elsewher e: Yes Loca tion: [facility] odify By: chevy tz Encou nter DateTime : 03/15/20 12 10:36:02 AM Not Available Not Available Not Available cefprozil 500 mg tablet TAKE 1 TABLET BY MOUTH TWICE DAILY 04/03 completed Not Available Not Available Not Available doxycycli ne hyclate 100 mg capsule 07/18 completed Not Available Not Available Not Available metoprolo l succinate ER 50 mg tablet,ex tended release 24 hr take 1 tablet (50MG) by oral route every day 04/03 completed Prescrib ed Elsewher e: Yes Loca tion: [facility] odify By: charlene lawler DateTime : 03/17/20 13 10:30:00 AM Not Available Not Available Not Available valacyclo vir 1 gram tablet active Not Available Not Available Not Available clarithro mycin 500 mg tablet 04/03 completed Not Available Not Available Not Available metoprolo l succinate ER 200 mg tablet,ex tended release 24 hr 07/18 completed Not Available Not Available Not Available prednison e 20 mg tablet 07/18 completed Not Available Not Available Not Available clonazepa m 0.5 mg tablet TAKE 2 TABLETS BY MOUTH TWICE DAILY NEEDED FOR ANXIETY 04/03 completed Not Available Not Available Not Available metoprolo l succinate ER 100 mg tablet,ex tended release 24 hr TAKE 1 TABLET BY MOUTH DAILY active Not Available Not Available No t Available simvastat in 10 mg tablet TAKE 1 TABLET BY MOUTH DAILY active Not Available Not Available No t Available clonazepa m 1 mg tablet TAKE 1 TABLET BY MOUTH TWICE DAILY NEEDED FOR SHAKES active Not Available Not Available No t Available venlafaxi ne ER 150 mg capsule,e xtended release 24 hr TAKE 1 CAPSULE BY MOUTH AT BEDTIME active Not Available Not Available No t Available acetamino phen 300 mg-codein e 30 mg tablet TAKE 1 TABLET BY MOUTH EVERY 6 HOURS NEEDED FOR PAIN 04/03 completed Not Available Not Available Not Available morphine ER 30 mg tablet,ex tended release TAKE 1 TABLET BY MOUTH EVERY DAY 04/03 completed Not Available Not Available Not Available hydrocodo ne 10 mg-acetam inophen 325 mg tablet TAKE 1 TABLET BY MOUTH THREE TIMES DAILY NEEDED. active Not Available Not Available No t Available glimepiri de 1 mg tablet TAKE 1 TABLET BY MOUTH EVERY MORNING WITH BREAKFAS T active Not Available Not Available No t Available morphine (bulk) 100 % powder 03/28 completed Prescrib ed Elsewher e: Yes Loca tion: [facility] odify By: charlene lawler DateTime : 03/15/20 12 10:36:02 AM Not Available Not Available Not Available estradiol 1 mg tablet TAKE 1 TABLET BY MOUTH EVERY DAY 04/03 completed Not Available Not Available Not Available gabapenti n 800 mg tablet TAKE 1 TABLET BY MOUTH FOUR TIMES DAILY active Not Available Not Available No t Available imiquimod 5 % topical cream packet APPLY A THIN LAYER AA TOPICALL Y 5 TIMES A WEEK. LEAVE ON FOR 6-8 H 04/03 completed Not Available Not Available Not Available simvastat in 5 mg tablet take 1 tablet by oral route every day in the evening 04/03 completed Prescrib ed Elsewher e: Yes Loca tion: [facility] odify By: jamal glasser DateTime : 04/17/20 16 10:30:00 AM Not Available Not Available Not Available Xanax 0.25 mg tablet take 1 tablet (0.25MG) by oral route 3 times every day 03/30 completed Prescrib ed Elsewher e: No Locat ion: [facility] odify By: charlene lawler DateTime : 03/16/20 12 10:00:00 AM Not Available Not Available Not Available mirtazapi ne 30 mg tablet TAKE 1 TABLET BY MOUTH AT BEDTIME active Not Available Not Available No t Available metformin 1,000 mg tablet 04/03 completed Not Available Not Available Not Available lisinopri l 10 mg tablet TAKE 1 TABLET BY MOUTH DAILY active Not Available Not Available No t Available omeprazol e 20 mg capsule,d elayed release TAKE 1 CAPSULE BY MOUTH DAILY active Not Available Not Available No t Available mupirocin 2 % topical ointment APPLY TOPICALL Y TO THE AFFECTED AREA TWICE DAILY 04/03 completed Not Available Not Available Not Available gabapenti n 100 mg capsule take 3 capsule by oral route 3 times every day 04/03 completed Prescrib ed Elsewher e: Yes Loca tion: [facility] odify By: chevy Bernal nter DateTime : 03/15/20 12 10:36:02 AM Not Available Not Available Not Available estradiol 0.5 mg tablet take 1 tablet (0.5MG) by oral route every day 03/28 completed Prescrib ed Elsewher e: No Locat ion: [facility] odify By: charlene lawler DateTime : 03/16/20 12 10:00:00 AM Not Available Not Available Not Available cefprozil 250 mg tablet 07/18 completed Not Available Not Available Not Available levofloxa rose 500 mg tablet 07/18 completed Not Available Not Available Not Available Vitamin D2 1,250 mcg (50,000 unit) capsule take 1 capsule by oral route every week 03/16 completed Prescrib ed Elsewher e: Yes Loca tion: [facility] odify By: brent denney DateTime : 03/15/20 12 10:36:02 AM Not Available Not Available Not Available lisinopri l 2.5 mg tablet take 1 tablet by oral route every day 04/03 completed Prescrib ed Elsewher e: Yes Loca tion: [facility] odify By: jamal denney DateTime : 04/17/20 16 10:30:00 AM Not Available Not Available Not Available hydrocodo ne bitartrat e (bulk) crystals 04/03 completed Prescrib ed Elsewher e: Yes Loca tion: [facility] odify By: chevy jeonger DateTime : 03/15/20 12 10:36:02 AM Not Available Not Available Not Available doxycycli ne hyclate 100 mg tablet 04/03 completed Not Available Not Available Not Available Microlet Lancet USE TO TEST 2-3 TIMES DAILY active Not Available Not Available No t Available amoxicill in 875 mg-potass ium clavulana te 125 mg tablet TAKE 1 TABLET BY MOUTH EVERY 12 HOURS 10/12 completed Not Available Not Available Not Available Pneumovax -23 25 mcg/0.5 mL injection syringe 04/03 completed Not Available Not Available Not Available mirtazapi ne 7.5 mg tablet take 2 tablet by oral route every day at bedtime 04/03 completed Prescrib ed Elsewher e: Yes [facility] By: chevy fuentes Encou nter DateTime : 03/15/20 12 10:36:02 AM Not Available Not Available Not Available Lipofen 50 mg capsule take 1 capsule by oral route every day with a meal 03/16 completed Prescrib ed Elsewher e: Yes Loca tion: [facility] odify By: brent Kiser ncounter DateTime : 03/15/20 12 10:36:02 AM Not Available Not Available Not Available Contour Next Test Strips USE INSTRUCT ED 2 TO 3 TIMES DAILY active Not Available Not Available No t Available Shingrix (PF) 50 mcg/0.5 mL intramusc ular suspensio n, kit 04/03 completed Not Available Not Available Not Available Fluzone High-Dose 2019-20 (PF) 180 mcg/0.5 mL intramusc ular syringe 04/03 completed Not Available Not Available Not Available imiquimod 5 %-tretino in 0.05 %-levocet irizine 1 % topical gel Apply 1 g every day by topical route. 2020 active Not Available Not Available Not Avai lable ID NOW COVID-19 Test Kit TEST DIRECTED TODAY 04/03 completed Not Available Not Available Not Available Paxlovid 300 mg (150 mg x 2)-100 mg tablets in a dose pack TK 2 NIRMATRE LVIR TS AND 1 RITONAVI R T TOGETHER PO BID FOR 5 DAYS TWICE DAILY 04/03 completed Not Available Not Available Not Available Vitals Date Recorded Body height Body mass index (BMI) Body weight Systolic blood pressure Diastolic blood pressure Provider Name and Address Organization Details Last Updated DateTime 10/12/2021 167.64 cm 26 kg/m2 63639.37 g 118 mm[Hg] 72 mm[Hg] Marcia Walker [place] - [facility] 15:11:33 Date Recorded Body height Body mass index (BMI) Body weight Systolic blood pressure Diastolic blood pressure Provider Name and Address Organization Details Last Updated DateTime 04/03/2023 167.64 cm 25.3 kg/m2 58803 g 122 mm[Hg] 82 mm[Hg] Marcia Walker [facility] 3 15:25:49 Date Recorded Body height Body mass index (BMI) Body weight Systolic blood pressure Diastolic blood pressure Provider Name and Address Organization Details Last Updated DateTime 07/18/2020 167.64 cm 26 kg/m2 26784.37 g 119 mm[Hg] 66 mm[Hg] Marcia Walker [facility] 0 12:41:49 Social History Question Answer Notes LastModified by Organizat ion Details LastModified Time Tobacco Smoking Status Current Some Day Smoker Marcia Walker [facility] 04/03/2023 15:26:16 Do You Have An Advance Directive? Yes [email or web address] Information not available 04/03/2023 What Is Your Level Of Alcohol Consumption? None [email or web address] Information not available 07/18/2020 Are You Blind Or Do You Have Difficulty Seeing? No [email or web address] Information not available 10/12/2021 What Is Your Level Of Caffeine Consumption? Occasional [email or web address] Information not available 04/03/2023 How Much Tobacco Do You Chew? None [email or web address] Information not available 10/12/2021 In The 14 Days Before Symptom Onset, Have You Had Close Contact With A Laboratory-confir med COVID-19 While That Case Was Ill? No Information not available 10/12/2021 In The 14 Days Before Symptom Onset, Have You Had Close Contact With A Person Who Is Under Investigation For COVID-19 While That Person Was Ill? No [email or web address] Information not available 10/12/2021 Have You Been To An Area Known To Be High Risk For COVID-19? No [email or web address] Information not available 10/12/2021 Are You Deaf Or Do You Have Serious Difficulty Hearing? No [email or web address] Information not available 10/12/2021 What Type Of Diet Are You Following? DIABETIC [email or web address] Information not available 10/12/2021 Do You Or Have You Ever Used E-cigarettes Or Vape? Never Used Electronic Cigarettes [email or web address] Information not available 04/03/2023 What Is The Highest Grade Or Level Of School You Have Completed Or The Highest Degree You Have Received? 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 Yes [email or web address] Information not available 10/12/2021 Do You Use Protection During Sex? No [email or web address] Information not available 10/12/2021 Do You Use Your Seat Belt Or Car Seat Routinely? Yes [email or web address] Information not available 10/12/2021 Do You Have Smoke And Carbon Monoxide Detectors In Your Home? Yes [email or web address] Information not available 10/12/2021 At What Age Did You Start Smoking Tobacco? 39 [email or web address] Information not available 04/03/2023 Do You Or Have You Ever Used Smokeless Tobacco? Never Used Smokeless Tobacco [email or web address] Information not available 04/03/2023 How Much Tobacco Do You Smoke? No [email or web address] Information not available 10/12/2021 Do You Feel Stressed (tense, Restless, Nervous, Or Anxious, Or Unable To Sleep At Night)? SG7485-0 [email or web address] Information not available 04/03/2023 Do You Use Any Illicit Or Recreational Drugs? No [email or web address] Information not available 10/12/2021 Do You Use Sunscreen Routinely? No [email or web address] Information not available 10/12/2021 How Many Years Have You Smoked Tobacco? 10 [email or web address] Information not available 04/03/2023 Have You Used IV Drugs? No [email or web address] Information not available 10/12/2021 Sex: Unknown Functional Status Question Answer Note LastModified by Organization D etails LastModified Time Are you able to walk? YESLIMIT [email or web address] Information not available 04/03/2023 What is your exercise level? None Information not available 07/18/2020 Mental Status None recorded. Family History Relationship Description Onset Age of this Age Resolved Age Notes LastModified by Organization Details LastModified Time Mother Colostomy [email or web address] Not availab le 10/12/2021 14:28:59 Mother Malignant tumor of pancreas [email or web address] Not available 2020 14:28:59 Father Coronary atherosclero sis [email or web address] Not available 2020 14:28:59 Father Heart disease [email or web address] Not available 07/18 12:47:29 Father Malignant tumor of breast [email or web address] Not available 07/18 12:47:40 Sister Malignant tumor of breast [email or web address] Not available 10/22 13:02:53 Brother Malignant neoplastic disease [email or web address] Not available 10/22 13:03:25 Notes:Brother: unknown cance r Father: heart failure, Coronary artery disease Mother: Cancer, pancreatic, colostomy Sister: Cancer, breast Medical History Condition Response Other Y Blood Transfusion N Dermatologic Disorders N Gestational Diabetes N Anxiety Disorder Y Autoimmune disease N Arthritis Y Polyps Y Infertility N Acid Reflux (GERD) N Cancer N Varicosities N Stroke N Neurologic/Epilepsy N Fibromyalgia N Headaches N Kidney Disease N Heart Problems N Kidney or Bladder Problems N Eating Disorder N Art (IVF or FET) N Hepatitis/Liver Disease N No Past Medical History N Urinary Tract Infection N Asthma N Trauma/Violence N Thrombophilias N Allergies (Food, seasonal, environmental ) N Breast Cancer N Drug/Latex Allergies/Reactions Y Lung Disease N Defects or Inherited Disease N Breast Problem N Hematologic disorders N Anesthesia Complications N History of STI Y Deep Vein Thrombosis N Polycystic ovary syndrome N History of abnormal pap N Endometriosis N High Cholesterol Y Thyroid Problems N GI Problems Y Anemia N Psychiatric Illness N Ovarian Cancer N Diabetes Y Pulmonary (TB, Asthma) N Eczema N Abuse/Domestic Violence N Depression/ depression N Heart Disease N Pre-Eclampsia N Hypertension Y Osteoporosis N Gynecological History Statement/Question Response Date of Last Mammogram 01/07/2020 Date of LMP 11/10/1989 On BCP's at Conception? N N Was last menstrual period normal Y STIs/STDs Y HPV Vaccine N Current Control Method Tubal Ligat ion Age at First Child 24 If Post Menopausal, Age at Menopause 39 Most Recent Bone Density 01/04/2019 Sexually Active? N Abstinence Age of first menstrual cycle 13 Date of Last Pap Smear 04/03/2023 Sexual Problems? N Desired Control Method Hysterectom y LMP Unknown 11/10/2011 N Obstetrics History GPAL:G 2 P 2 0 0 2 Type Value Full Term 2 Living 2 Total 2 Past Encounters Encounter ID Performer Location Encounter Start Date Encounter Closed Date Diagnosis/Indication Diagnosis SNOMED-CT Code Diagnosis ICD10 Code Diagnosis Note [id number] Tomeka Quiroga [place] [address],[place] [address] 07/18/2020 12:06:55 07/18/2020 13:19:42 Condyloma acuminatum of the anogenital region 451499697 A63.0 if pt detects a lesion may start medication , do not rec TCA tx as would be more harmful at this point, but if lesion devleops may reconsider f/u wwe [id number] Tomeka Quiroga [facility] [address],[place] [address] 03/27/2021 10:05:13 03/27/2021 21:50:48 Increased frequency of urination 513324179 R35.0 [id number] Tomeka Quiroga [place] [address],[place] [address] 10/12/2021 14:26:21 10/12/2021 15:34:22 Gynecologic examination 83822786 Z01.419 [id number] Jillian Jacobsen [facility] [address],[place] [address] 04/03/2023 15:07:16 04/03/2023 15:53:52 Gynecologic examination 62634925 Z01.419 Take Calcium with Vitamin D 12-1500mg daily. Do monthly self breast exams. It is advised to get annual flu shot in the fall and she could obtain at [facility] or [facility] clinic. If you haven't received the Tdap vaccine in the last 10 years you should obtain one as well. Have mammogram yearly, bone density every 2-3 years and colonoscop y every 5-10 years depending on findings and history. Engage in daily exercise of low impact aerobic exercise 45-60 minutes 4-5 times weekly. Avoid tobacco and illicit drugs as well as using moderation with alcohol intake less than 1-2 8 oz beverages daily. This lifestyle behavior pattern will lead to less health conditions and longer life span. If BMI greater than 25 weight watchers or dietary consult advised. Questions have been answered. Patient appears to understand instructio ns, but if you have any further questions call or respond to this email Pap/hpv USPSTF recommends against screening for cervical cancer in women older than 65yo, those who've had a hysterecto my for non-cancer indication s, & who have had adequate prior screening & are not otherwise at high risk for cervical cancer. STD Screen declinedGe netic Screen discussedC olon Screen UTD PCPDexa Screen UTD PCPRoutine Labs UTD PCPMammo ordered Screening mammography [id number] Z12.31 Health Concerns Section Related Observation LastModified by Organization Detai ls LastModified Time None Recorded Concern Status LastModified by Organization Details LastModified Time None Recorded Advance Directives Directive Y: Payers Encounter Date Sequence Insurance Name Policy Number Policy Pat Covered Member ID Pat Member ID Guarantor Name 07/18/2020 1 [facility] (MEDICARE REPLACEMENT HMO) [id number] Yamile F Dylan [id number] Yamile F Dylan 03/27/2021 1 [employer] [facility] (MEDICARE REPLACEMENT HMO) [id number] Yamile F Dylan [id number] Yamile F Dylan 10/12/2021 1 [employer] [facility] (MEDICARE REPLACEMENT HMO) [id number] Yamile F Dylan [id number] Yamile F Dylan 04/03/2023 1 [employer] [facility] (MEDICARE REPLACEMENT HMO) [id number] Yamile F Dylan [id number] Yamile Radhames Dylan Notes Date Note Type Note Provider Name and Address Organization Details Recorded Time 07/18/2020 text/html pt has had some rectal bleeding but that has stopped, has appt for colonoscopy already scheduled. also dx with genital warts, thinks 1 or 2 are present on her left thigh near her bottom. Tomeka Quiroga, [place] [address], [place], [address], [place] [facility] 07/18/2020 13:07:25 10/12/2021 text/html Annual GYNReport ed bypatient.Breast:No breast pain; No breast lump; No nipple discharge Preventive measures:Encourage self breast examination; Encourage regular exercise; Encourage no tobacco useNotes:pt in wheelchair, nerve condition, declines mammogram, pap deferred due to hysterectomy new hx this year multiple skin cancer lesion removals, takes ca and vit d supplementation Tomeka Quiroga CNM [address], [place], [address], [facility] 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 Post-MenopausalRepor zeke bypatient.Menopausal Symptoms:no menopausal symptoms; normal vaginal lubrication Vaginal Bleeding:history of menopause having occurred; no history of post menopausal bleeding Urinary Symptoms:no hematuria; no incontinence; no nocturia; no urinary frequency Vulva:no genital lesion; no vulvar atrophy Vagina:normal vaginal discharge; no vaginal atrophy Breast:no breast lump; no nipple discharge; no breast pain Sexual Complaints:no sexual complaints Psychological Symptoms:no depression; no anxiety Preventive Measures:encourage regular mammograms starting age 40; encourage self breast examination; encourage regular exercise; encourage no tobacco use; needs to schedule mammogram; history of recent colonoscopy Jillian Jacobsen ANSELMO- [address], [place], [address], [facility] 04/03/2023 15:40:24 OBGyn Episode Ob Episode Information Episode Created Date Number of Fetuses Patient Bloodtype Patient rh Status Prepregnancy Weight lbs Domestic Partner Domestic Partner Phone Father Name Residential Subcontractor Status 07/18/20 20 1 CLOSED Fetus Data First Name Last Name Admitted to NICU Weight (g) Sex Living Outcome Pediatric Complications Fetus ID Race Codes Race Delivery Type 2721.55 2 F Full Term 4335 Vaginal Delivery Bridger Calculation Initial Bridger Date Initial Exam Date Initial Exam Provider Initial Ultrasound Date Last Menstrual Period Date Ultra Sound Weeks Gestation 0 Eighteen To Twenty Week Bridger Update Ultra Sound Date Fundal Height At Umbil Quickening Date Ultra Sound Latest Weeks Gestation Final Bridger Confirmed By Final Bridger Confirmed Date Final Bridger Date Ultra Sound Latest Days Gestation 0 0 Menstrual History Last Menstrual Date Menses Monthly On Bcp Conception Prior Menses Frequency Hcg Plus Date Menarche Onset Age Delivery Information Delivery Date Delivery Type Labor Anesthesia Weeks Gestation Incision Type Labor Labor Length Hrs Delivered By Post Complications Tubal Sterilization Discharge Date Comments 7 40 Discharge Information Feeding Method Contraceptive Method Maternal HG B and HCT Levels Ob Episode Information Episode Created Date Number of Fetuses Patient Bloodtype Patient rh Status Prepregnancy Weight lbs Domestic Partner Domestic Partner Phone Father Name Residential Subcontractor Status 07/18/20 20 1 CLOSED Fetus Data First Name Last Name Admitted to NICU Weight (g) Sex Living Outcome Pediatric Complications Fetus ID Race Codes Race Delivery Type 2721.55 2 M Full Term 4334 Vaginal Delivery Bridger Calculation Initial Bridger Date Initial Exam Date Initial Exam Provider Initial Ultrasound Date Last Menstrual Period Date Ultra Sound Weeks Gestation 0 Eighteen To Twenty Week Bridger Update Ultra Sound Date Fundal Height At Umbil Quickening Date Ultra Sound Latest Weeks Gestation Final Bridger Confirmed By Final Bridger Confirmed Date Final Bridger Date Ultra Sound Latest Days Gestation 0 0 Menstrual History Last Menstrual Date Menses Monthly On Bcp Conception Prior Menses Frequency Hcg Plus Date Menarche Onset Age Delivery Information Delivery Date Delivery Type Labor Anesthesia Weeks Gestation Incision Type Labor Labor Length Hrs Delivered By Post Complications Tubal Sterilization Discharge Date Comments 5 40 Discharge Information Feeding Method Contraceptive Method Maternal HG B and HCT Levels
--- OUTSIDE RECORDS SUMMARY | 2025-02-22 16:15 | XMS_ITS | Encounter Summary ---
Author Organization [facility] Address [address] [place] [id number] Care Team Providers Care Fisher Trot Line Name Role Phone Dena Tapiaa ANSELMO Primary Care Provider [phone] Encounter Details Date Type Department Care Team (Late st Contact Info) Description 01/10/2023 BA Insight Message Enc [facility] Family Medicine [address] [address] Amy, [facility] Provider Overdue for Annual Physical Social History Tobacco Use Types Packs/Day Years Used Date Smoking Tobacco: Some Days Cigarettes 0.5 10 Smokeless Tobacco: Never Comments:smokes one of daugh ters cigaretts just off and on. Provider to bereavement counselor Alcohol Use Standard Drinks/Week Comments No 0 (1 standard drink = 0.6 oz pur e alcohol) AUDIT-C Answer Date Recorded Frequency of Alcohol Consumption Never 10/14/2018 Average Number of Drinks Not on file 018 Frequency of Binge Drinking Not on file 03/2018 PHQ-2 Answer Date Recorded PHQ-2 Score - If the patient scores above 3, please move on to questions 3-9 0 12/04/2020 Comments No Sex and Gender Information Value Date Recorded Sex Assigned at Female 10/14/2018 10:17 AM CIGAR MAKING MACHINE SUPERVISOR Legal Sex Female 8:06 PM CDT Gender Identity Female 10/14/2018 10:17 AM CIGAR MAKING MACHINE SUPERVISOR Sexual Orientation Straight 10/14/2018 10 :17 AM CIGAR MAKING MACHINE SUPERVISOR documented as of this encounter Plan of Treatment Not on file documented as of this encounter Visit Diagnoses Not on filedocumented in this encounter Additional Health Concerns Assessment Noted Time PHQ-9 Depression Total Score: 0 11/28/19 21 10:40 AM CIGAR MAKING MACHINE SUPERVISOR documented as of this encounter Care Teams Fisher Trot Line Relationship Specialty Start Date End Date Jennifer Tapia NP [address] [address] PCP - General NURSE PRACTITIONER 05/10/22 documented as of this encounter
--- OUTSIDE RECORDS SUMMARY | 2025-02-22 16:15 | XMS_ITS | Clinical Summary ---
Author Organization [facility] [place] [address] Address [address] [place] [address] Care Team Providers Care Tool Grinding Technician Name Role Phone Arlet Madrid Primary Care Provider [phone] Allergies Active Allergy Reactions Criticality Noted Date Comments Amoxicillin Nausea only,Vomiting Low 12/28/2015 Iodine Unknown,Headache,Vomiting Low 12/28/2015 Medications gabapentin (NEURONTIN) 800 mg tablet TK 1 T PO QID 3 10/14/2017 Activ e HYDROcodone-sheila taminophen (NORCO) 10-325 mg per tabletIndicatio ns:Pain Take 1 tablet by mouth every 6 (six) hours as needed. 0 12/31/2017 Active lisinopril (PRINIVIL,ZESTR IL) 10 mg tablet TK 1 T PO QD 5 12/05/2017 Active metFORMIN (GLUCOPHAGE) 500 mg tablet TK 1 T PO BID WITH THE MORNING AND ARGENIS MEAL 5 11/06/2017 Active metoprolol XL (TOPROL-XL) 100 mg 24 hr tablet Take 200 mg by mouth daily 1 10/19/2017 Active simvastatin (ZOCOR) 10 mg tablet TK 1 T PO QD IN THE ARGENIS 1 10/29/2017 Active mirtazapine (REMERON) 30 mg tablet Take 30 mg by mouth nightly. Active aspirin 81 mg tablet Take 81 mg by mouth daily. Active venlafaxine XR (EFFEXOR-XR) 150 mg 24 hr capsule Take 150 mg by mouth daily. Active lancets misc Testing once a day 50 each 2 02/17/2019 Active blood glucose diagnostic strip 1 each by other route as directed Use one strips to test once weekly Active lancing device with lancets kit USE 2 LANCETS PER DAY TO TEST BLOOD SUGAR 03/04/2022 Active blood glucose diagnostic (glucose blood) strip USE DIRECTED TWICE DAILY 03/04/2022 Active Active Problems Problem Noted Date Diagnosed Date Tarlov cysts 03/13/2022 Encounter to establish care 03/13/2022 Moderate episode of recurrent major depressive d isorder 05/09/2020 Other chest pain 01/08/2018 Thoracic back pain 05/21/2017 Chronic lower back pain 07/31/2016 Benign essential hypertension 12/28/2015 Depression 12/28/2015 Diabetes mellitus 12/28/2015 GERD (gastroesophageal reflux disease) 6 Hyperlipidemia 12/28/2015 Radiculopathy 12/28/2015 Resolved Problems Problem Noted Date Diagnosed Date Resolved Date Spinal cord cysts 12/28/2015 03/13/2022 Medical History Medical History Date Comments Hyperlipidemia Diabetes mellitus (HCC) Skin cancer Acid indigestion Radiculopathy 2000 Family History Medical History Relation Name Comments Cancer Brother Heart failure Father Cancer Mother Heart attack Sister Relation Name Status Comments Brother Father Mother Sister Social History Tobacco Use Types Packs/Day Years Used Date Smoking Tobacco: Former Cigarettes Smokeless Tobacco: Never Alcohol Use Standard Drinks/Week Comments No 0 (1 standard drink = 0.6 oz pur e alcohol) PHQ-2 Answer Date Recorded PHQ-2 Total Score (If total score is 3 or more points, staff should administer the PHQ-9) 0 03/13/2022 Personal Safety Answer Date Recorded Getting School Help Needed Not on file 01/23 Comments Unknown Sex and Gender Information Value Date Recorded Sex Assigned at Not on file Legal Sex Female 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 Gender Identity Not on file Sexual Orientation Not on file Obstetrics History Last Filed Vital Signs Vital Sign Reading Time Taken Comments Blood Pressure 130/70 03/13/2022 3:06 PM CDT Pulse 70 03/13/2022 3:06 PM CDT Temperature 37 C (98.6 F) 03/13/2022 3:06 PM CDT Respiratory Rate - - Oxygen Saturation 93% 03/13/2022 3:06 PM CDT Inhaled Oxygen Concentration - - Weight 72.7 kg (160 lb 4.8 oz) 03/13/2022 3:06 P M CDT Height 175.3 cm (5' 9 ) 03/13/2022 3:06 PM CDT Body Mass Index 23.67 03/13/2022 3:06 PM CDT Plan of Treatment Health Maintenance Due Date Last Done Comments Albumin Creatinine Ratio, Urine 1949 Colon Cancer Screening-Colonoscopy 1950 Hemoglobin A1C 1949 Hepatitis C Screening 1949 Osteoporosis Screening-Bone Density Scan 1949 eGFR 1949 Dilated Eye Exam 1949 Foot Exam 1949 Lipid Panel 1949 Hepatitis B Screening 1967 Well Visit 65+ 2014 Zoster Vaccine (3 of 3) 02/23/2020 12/29/2019, 10/20 Depression Screening 03/13/2023 03/13/2022 Fall Risk Assessment 03/13/2023 03/13/2022 Covid-19 Vaccine (4 2023-2 5 season) 2024 09/18/2021, 02/28/2021, 01/31/2021 Influenza Vaccine (#1) 2024 , 08/31/2020, 10/09/2019, Additional history exists DTaP/Tdap/Td Vaccine (2 - Td or Tdap) 06/27/2025 06/27/2015 Pneumococcal vaccine 65+ Completed 020, 09/24/2017, 07/31/2016 [place] [address] [facility] Care Teams Tool Grinding Technician Relationship Specialty Start Date End Date Arlet Madrid PA PCP - General Social Media Executive 03/13/22
--- OUTSIDE RECORDS SUMMARY | 2025-02-22 16:15 | XMS_ITS | Encounter Summary ---
Author Organization [facility] Address [address] [place] [address] Care Team Providers Care Faa Certified Powerplant Mechanic Name Role Phone Victoria Nuñez MD Primary Care Provider [phone]- [phone] Encounter Details Date Type Department Care Team (Late st Contact Info) Description 08/10/2020 Lab Requisition [facility] DermPath Lab [address] [facility], [facility] [place] [id number] Taisha Ornelas MD [address] [facility] [address] [place] [address] Social History Tobacco Use Types Packs/Day Years Used Date Smoking Tobacco: Never Assessed Comments Unknown Sex and Gender Information Value Date Recorded Sex Assigned at Not on file Legal Sex Female 6:12 PM BUSINESS OPERATIONS COORDINATOR Gender Identity Not on file Sexual Orientation Not on file documented as of this encounter Plan of Treatment Not on file documented as of this encounter Procedures Procedure Name Priority Date/Time Associated Diagnosis Comments DERMATOPATHOLOGY Routine 08/09/2020 12:0 0 AM CDT documented in this encounter Results * DERMATOPATHOLOGY (08/09/2020 12:00 AM CDT) Case Report Dermatopathology Report Case: [id number] Authorizing Provider: Taisha Ornelas MD Collected: 08/09/2020 12:00 AM Ordering Location: [facility] Care DermPath Lab Received: 08/10/2020 01:26 PM Pathologist: Zack Johnson MD Specimen: Skin, left inferior cheek 0 2:36 PM CDT DERMATOPATHOLOGY LABORATORY Final Diagnosis Specimen A. SKIN, left inferior cheek: DERMAL SCAR (L90.5) EPIDERMOID CYST (L72.0) (see microscopic description) 0 2:36 PM CDT DERMATOPATHOLOGY LABORATORY Clinical History Scar vs morpheic BCC (about 5mm inferior to scar, BCC), non-healing. 0 2:36 PM CDT DERMATOPATHOLOGY LABORATORY Gross Description Specimen A: Received is one formalin filled container labeled with the patient's name and designated left inferior cheek. The specimen consists of a punch measuring [id number]. Jar 0. 0 2:36 PM CDT DERMATOPATHOLOGY LABORATORY Microscopic Description Specimen A. SKIN, left inferior cheek: There are fibroblasts and collagen bundles oriented parallel to the skin surface. There are elongated blood vessels, some of which are oriented perpendicular to the skin surface. No basal cell carcinoma is identified. Within the dermis, there is a space lined by epithelium that resembles normal epidermis and the infundibular portion of the hair follicle. 0 2:36 PM CDT DERMATOPATHOLOGY LABORATORY Disclaimer An external and internal positive and negative controls are appropriate for the histochemical, immunohistochemical and immunofluorescence stain(s) in this case (if any), except where stated explicitly. The performance characteristics of the stain(s) cited in this report were developed and its performance characteristic determined by the Dermatopathology Laboratory at [facility], directed by Dr. Elliot Johnson. These tests need not be, and therefore are not, approved by the [place] Food and Drug Administration. The tests are used for clinical purposes. Billing Codes Specimen Charges Stain Charges 71600 1 0 2:36 PM CDT DERMATOPATHOLOGY LABORATORY Embedded Images 0 2:36 PM CDT DERMATOPATHOLOGY LABORATORY Pathology/Cytolog y TISSUE SPECIMEN FROM SKIN / Unknown 08/09/2020 08/10/2020 1:26 PM CDT us Taisha Ornelas MD LAB - PATHOLOGY/CYTOLOGY OR DERABLES Final Result DERMATOPATHOLOGY LABORATORY [facility] - Department of Dermatology [address], [address] [phone] documented in this encounter Visit Diagnoses Not on filedocumented in this encounter Care Teams Faa Certified Powerplant Mechanic Relationship Specialty Start Date End Date Victoria Nuñez MD [address] [facility] [address] [place] [address] PCP - General 10/15/13 documented as of this encounter
--- OUTSIDE RECORDS SUMMARY | 2025-02-22 16:15 | XMS_ITS | Clinical Summary ---
Author Organization [facility] Address [address] [place] [address] Care Team Providers Care Beam Department Supervisor Name Role Phone WillieJennifer moseley ANSELMO Primary Care Provider [phone] Allergies Active Allergy Reactions Criticality Noted Date Comments Amoxicillin Nausea Only,Vomiting 12/28/2015 Iodine Headache,Vomiting 12/28/2015 Medications aspirin (KARLEY ASPIRIN EC LOW DOSE) 81 MG tablet Active DOCOSAHEXAENOIC ACID OR Active vitamin C 500 MG tablet Take 500 mg by mouth daily. Active Cholecalciferol (VITAMIN D3) 2000 units Tab A ctive ferrous sulfate, 65 mg elemental, 325 (65 FE) MG tablet Take 325 mg by mouth daily with breakfast. Active VENLAFAXINE XR 150 MG 24 hr capsuleIndications:Benig n essential hypertension TAKE 1 CAPSULE(150 MG) BY MOUTH DAILY 90 capsule 1 09/05/20 21 Active SIMVASTATIN 10 MG tabletIndications:Pure hypercholesterolemia TAKE 1 TABLET(10 MG) BY MOUTH EVERY NIGHT AT BEDTIME 90 tablet 1 11/07/20 21 Active LISINOPRIL 10 MG tabletIndications:Benign essential hypertension TAKE 1 TABLET(10 MG) BY MOUTH DAILY 90 tablet 11/20/19 22 Active MIRTAZAPINE 30 MG tabletIndications:Modera te episode of recurrent major depressive disorder (CMS/HCC) TAKE 1 TABLET(30 MG) BY MOUTH EVERY NIGHT AT BEDTIME 90 tablet 1 11/26/19 22 Active Blood Glucose Monitoring Suppl (CONTOUR NEXT MONITOR) w/Device KitIndications:Type 2 diabetes mellitus without complication, without long-term current use of insulin (CMS/HCC HHS/HCC) Use to test 2 times daily 1 kit 12/20/19 22 Active HYDROcodone-acetaminophe n 10-325 MG tabletIndications:Chroni c Pain Take 1 tablet by mouth 3 (three) times daily as needed. Indications : Chronic Pain 90 tablet 02/28/20 Active clonazePAM 0.5 MG tabletIndications:Anxiet y Take 1 tablet (0.5 mg total) by mouth 3 (three) times daily as needed. FOR ANXIETY 90 tablet 02/28/20 Active METOPROLOL SUCCINATE ER 100 MG 24 hr tabletIndications:Benign essential hypertension TAKE 1 TABLET(100 MG) BY MOUTH DAILY 90 tablet 03/04/20 Active Microlet Lancets MiscIndications:Type 2 diabetes mellitus without complication, without long-term current use of insulin ([facility]) USE 2 LANCETS PER DAY TO TEST BLOOD SUGAR 200 each 03/04/20 Active Glucose Blood (CONTOUR NEXT TEST) test stripIndications:Type 2 diabetes mellitus without complication, without long-term current use of insulin ([facility]) USE DIRECTED TWICE DAILY 200 strip 03/04/20 Active metFORMIN 500 MG tabletIndications:Type 2 diabetes mellitus without complication, without long-term current use of insulin ([facility]) Take 1 tablet (500 mg total) by mouth 2 (two) times daily. 180 tablet 03/14/20 Active gabapentin 800 MG tabletIndications:Chroni c low back pain with sciatica, sciatica laterality unspecified, unspecified back pain laterality TAKE 1 TABLET(800 MG) BY MOUTH FOUR TIMES DAILY 360 tablet 03/14/20 22 Active Active Problems Problem Noted Date Diagnosed Date Moderate episode of recurrent major depressive d isorder 05/09/2020 Thoracic back pain 05/21/2017 Chronic lower back pain 07/31/2016 penitentiary use of drug 07/10/2016 Benign essential hypertension 12/28/2015 Body mass index (BMI) 23.0-23.9, adult 6 Depression 12/28/2015 Diabetes mellitus ([facility]) 12/28/2015 GERD (gastroesophageal reflux disease) 6 Hyperlipidemia 12/28/2015 Radiculopathy 12/28/2015 Spinal cord cysts 12/28/2015 Resolved Problems Problem Noted Date Diagnosed Date Resolved Date Encounter for preventive health examination 12/27/2015 07/21/2020 Immunizations Immunization Administration Dates Next Due Fluzone High Dose - >Age 65 (Prefilled Syringe) 08/31/2020,08/20/2019,08/31/2018,2016,09/03/2016 Influenza (FluMist) 09/10/2017 Influenza (Generic) 10/09/2019,08/10/2018 Influenza Adult (Generic) 09/04/2016 MODERNA COVID-19 (12+) MRNA, LNP-S, PF, 100 MCG/ 0.5 ML DOSE 02/28/2021,01/31/2021 Pneumococcal (Pneumovax 23) 12/29/2019, 7 Pneumococcal (Prevnar 13) 07/31/2016 Shingrix 12/29/2019 Tdap (Generic) 06/27/2015 Zoster (Zostavax) 05991 Unt/0.65Ml 10/20/2017 Family History Medical History Relation Comments Heart Father Diabetes Maternal Grandmother Cancer Mother Pancreatic Cance r Relation Status Comments Father Maternal Grandmother Mother Social History Tobacco Use Types Packs/Day Years Used Date Smoking Tobacco: Some Days Cigarettes 0.5 10 Smokeless Tobacco: Never Tobacco Cessation:Ready to Q uit: No; Counseling Given: Yes Comments:smokes one of daughters cigaretts just off and on. Provider to travel counselor Alcohol Use Standard Drinks/Week Comments No [...] Sex Assigned at Female 10/14/2018 10:17 AM EVIDENCE CUSTODIAN Legal Sex Female 8:06 PM CDT Gender Identity Female 10/14/2018 10:17 AM EVIDENCE CUSTODIAN Sexual Orientation Straight 10/14/2018 10 :17 AM EVIDENCE CUSTODIAN Last Filed Vital Signs Vital Sign Reading Time Taken Comments Blood Pressure 128/84 06/05/2021 11:10 AM CDT Pulse 77 06/05/2021 11:10 AM CDT Temperature 36.7 C (98 F) 06/05/2021 11:10 AM CDT Respiratory Rate 18 06/05/2021 11:10 AM CDT Oxygen Saturation 98% 06/05/2021 11:10 AM CDT Inhaled Oxygen Concentration - - Weight 73.5 kg (162 lb) 06/05/2021 11:10 AM CDT Height 175.3 cm (5' 9 ) 06/05/2021 11:10 AM CDT Body Mass Index 23.92 06/05/2021 11:10 AM CDT Plan of Treatment Health Maintenance Due Date Last Done Comments Kidney Health Evaluation 1950 Hepatitis C 1968 Annual Medicare Wellness Visit 2014 Dexa Scan (General) 2014 Zoster Vaccines (3 of 3) 02/23/2020 12/29/2019, 10/10 Hemoglobin A1C 12/06/2021 06/05/2021, 03/10, 05/03/2020, Additional history exists Lipid Panel 03/21/2022 03/21/2021, 04/11, 04/27/2019 Diabetes: Retinopathy Eye Exam 05/23/2023 05/23/2021, 05/22/2020, 09/08/2018 COVID-19 Vaccine (3 - season) 2024 02/28/2021, 01/31/2021 RSV Immunization or 60+ Years (1 - 1-dose 75+ series) 2024 PHQ-2 (Physician Andreafski) 11/10/2024 DTaP, Tdap and Td Vaccines (2 - Td or Tdap) 06/27/2025 06/27/2015 Colorectal Cancer Screening Colonoscopy (10 Years) 06/12/2026 06/12/2016 Pneumococcal Vaccine: 50+ Years Completed 12/29/2019, 09/24/2017, 07/31/2016 Meningococcal B Vaccine Aged Out No l onger eligible based on patient's age to complete this topic Meningococcal Vaccine Aged Out No sharon harleen eligible based on patient's age to complete this topic RSV Immunizations Under 20 Months Aged Out No longer eligible based on patient's age to complete this topic Procedures Procedure Name Priority Date/Time Associated Diagnosis Comments HEMOGLOBIN, GLYCOSYLATED Routine 06/05/2021 11:37 AM CDT Elevated glucose DIABETIC RETINOPATHY EXAM (NEGATIVE)(SCAN ORDER) Routine 05/23/2021 LIPID PANEL Routine 03/21/2021 7:14 AM CDT COLONOSCOPY GENERIC (SCAN ORDER) Routine 06/12/2016 from Last 3 Months or Most Recently Relevant to Health Maintenance Results * (ABNORMAL) HEMOGLOBIN, GLYCOSYLATED (06/05/2021 11:37 AM CDT) HGB A1C 6.8(H) 3.80 - 5.60 % 06/06/2021 10:02 AM CDT [facility] ESTIMATED AVG GLUCOSE 148(H) 74 - 106 MG/DL 06/06/2021 10:02 AM CDT [facility] 06/05/2021 11:3 7 AM CDT Gumaro Doe MD LABORATORY Final Result [facility] [address] [place] [address], [place] [phone] * DIABETIC RETINOPATHY EXAM (NEGATIVE)(SCAN) (05/23/2021) Documents Scanned SCANNING Final Result [facility] * (ABNORMAL) LIPID PANEL (03/21/2021 7:14 AM CDT) CHOLESTEROL 179 <200 mg/dL [facility] HDL 54 > OR = 50 mg/dL [facility] TRIGLYCERIDES 228(H) <150 mg/dL [facility] Comment: If a non-fasting specimen was collected, consider repeat triglyceride testing on a fasting specimen if clinically indicated. William et al. J. of Clin. Lipidol. 2015;9:129-169. LDL (CALCULATED) 93 mg/dL (calc) [facility] Comment: Reference range: <100 Desirable range <100 mg/dL for primary prevention; <70 mg/dL for patients with CHD or diabetic patients with > or = 2 CHD risk factors. LDL-C is now calculated using the Mynor calculation, which is a validated novel method providing better accuracy than the Friedewald equation in the estimation of LDL-C. Reggie SS et al. MERLINE. 2013;310(19): 9226-6202 (http://education.Promoboxx/faq/LER024) CHOL/HDL RATIO 3.3 <5.0 (calc) [facility] NON HDL CHOLESTEROL 125 <130 mg/dL (calc) [facility] Comment: For patients with diabetes plus 1 major ASCVD risk factor, treating to a non-HDL-C goal of <100 mg/dL (LDL-C of <70 mg/dL) is considered a therapeutic option. 03/21/2021 7:14 AM CDT 03/21/2021 7:15 AM CDT Narrative [facility] - 03/22/2021 4:24 AM CDT FASTING:YES FASTING: YES us Gumaro Doe MD LABORATORY Final Result [facility] [address] [place] [address] * COLONOSCOPY (06/12/2016) us Documents Scanned SCANNING Final Result from Last 3 Months or Most Recently Relevant to Health Maintenance Insurance [employer]ENCE Care Teams Beam Department Supervisor Relationship Specialty Start Date End Date [place] [address] PCP - General NURSE PRACTITIONER 05/10/22
--- OUTSIDE RECORDS SUMMARY | 2025-02-22 16:15 | XMS_ITS | Referral Summary ---
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
--- OUTSIDE RECORDS SUMMARY | 2025-02-22 16:15 | XMS_ITS | Clinical Summary ---
Author Organization [facility] Address [address] [place] [address] Care Team Providers Care Jde Developer Name Role Phone Victoria Nuñez MD Primary Care Provider [phone] Source Comments [facility],non-owned Affiliates and Associated Physician Practices is amultiple site organization consisting of ambulatory clinics and hospital sitesin [place], [place], [place] and [place]. This disclosure is being madepursuant to the Care Everywhere program and may not contain all information available regarding this patient. 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 Gender Identity Not on file Sexual Orientation Not on file Plan of Treatment Health Maintenance Due Date Last Done Comments BONE DENSITY TESTING 1950 COLOGUARD (AGES 45-75) - COL ON CA SCREENING 1950 COLON MONITORING 1950 COLONOSCOPY - COLON CA SCREENING 1949 CT COLONOGRAPHY - COLON CA SCREENING 1950 Colorectal Cancer Screening 1950 FIT - COLON CA SCREENING 1950 FLEX SIG - COLON CA SCREENING 1950 LIPID TESTING 1950 MAMMOGRAM 1950 MEDICARE AWV 12 MONTHS 1950 HEPATITIS C SCREENING 07/23/1967 DTAP/TDAP/TD VACCINES (1 - Tdap) 1968 PNEUMOCOCCAL VACCINE 50+ (1 of 1 - PCV) 1999 ZOSTER VACCINE (1 of 2) 1999 COVID-19 VACCINE ( - 2023-2 5 season) 2024 Respiratory Syncytial Virus (RSV) Vaccine Pt: or over 60 yrs (1 - 1-dose 75+ series) 2024 DEPRESSION SCREENING 11/10/2024 INFLUENZA VACCINE (Season Ended) 2025 HEPATITIS B VACCINE Aged Out No longe r eligible based on patient's age to complete this topic HIB VACCINE Aged Out No longer eligi ble based on patient's age to complete this topic HPV VACCINE Aged Out No longer eligi ble based on patient's age to complete this topic MENINGOCOCCAL (Group B) VACC INE SHARED DECISION-MAKING Aged Out No longer eligibl e based on patient's age to complete this topic MENINGOCOCCAL GROUPS A/C/Y/W VACCINE Aged Out No longer eligible b ased on patient's age to complete this topic Insurance [employer]ENCE MEDICARE E[employer] [facility] Care Address: [address] [place] [phone] SELF PAY NO INSURANCE Member Subscriber Plan / Payer (Ef fective for All Dates) Name:Yamile Richardson Member ID:Not on file Relation to Subscriber:Not on file Name:TAWANDA,YAMILE Subscriber ID:Not on file (Home) Address: [address] [place] [address] [place] [address] Payer ID:Not on file Group ID:Not on file Type:Self Pay Address: [place], [place] [facility] Care Address: [address] [address] SELF PAY NO INSURANCE Member Subscriber Plan / Payer (Ef fective for All Dates) Name:Yamile Richardson Member ID:Not on file Relation to Subscriber:Not on file Name:YAMILE RICHARDSON Subscriber ID:Not on file (Home) Address: [address] [place] [address] [place] [address] Payer ID:Not on file Group ID:Not on file Type:Self Pay Address: [place], [place] Care Teams Jde Developer Relationship Specialty Start Date End Date Victoria Nuñez MD [address] [place] [address] [address] [place] [address] PCP - General 10/15/13
== END 2025-02-22 15:08 | disposition home or self-care (01) ==
PROVIDERS: PCP Family Medicine Adolescent Medicine; Visit Provider Nurse Practitioner Family
DX: Z12.31 Encounter for screening mammogram for malignant neoplasm of breast (principal); M85.852 Other specified disorders of bone density and structure, left thigh; M85.851 Other specified disorders of bone density and structure, right thigh; Z78.0 Asymptomatic menopausal state
CPT/HCPCS: 77063; 77067; 77080

== ENCOUNTER 2025-06-26 23:18 | Emergency (ER) | payer OTHER, SELFPAY ==
--- NOTE | ~2025-06-26 | CT_ITS ---
CT head without contrast Indication: Status post fall Technique: Serial scans were obtained through the brain without the administration of contrast. Dose reduction technique was used on this scan by utilizing automated exposure control and iterative recon struction technique. The dose-length product (DLP) was 681.00 mGy-cm. Findings: There is no evidence of intracranial hemorrhage, mass lesion, or acute infarct. The ventri cles and subarachnoid spaces are unremarkable. Low attenuation regions are seen within the periventr icular white matter bilaterally, likely representing changes from chronic microvascular ischemic dise ase. There is no evidence of edema, mass effect or midline shift. The visualized paranasal sinuses and mastoid air cells are clear. Impression: No intracranial hemorrhage, mass, or acute infarct. Mild chronic white matter changes, as above. Reviewed, dictated and finalized at location . Impression: No intracranial hemorrhage, mass, or acute infarct. Mild chronic white matter changes, as above.
--- NOTE | ~2025-06-26 | CT_ITS ---
Noncontrast CT scan of the cervical spine Technique: Multiple contiguous axial [address] images of the cervical spine were obtained and rec onstructed in 2D sagittal and coronal planes on the acquisition scanner. Dose reduction technique was used on this scan by utilizing automated exposure control, adjustment of the mA and/or kV according to patient size. The dose-length product (DLP) was 223.36 mGy-cm. Clinical History: Pain Findings: No fractures or dislocations. There is advanced degenerative change at the reticulation th e odontoid process with the anterior arch C1. There is severe degenerative disc narrowing at C4-C5, C 5-C6, and C6-C7. There is extensive facet joint degenerative changes. There is left neural foraminal narrowing at C3-C4. There is bilateral neural foraminal narrowing at C5-C6 and C6-C7. No prevertebral soft tissue swelling. Impression: No fracture or subluxation of the cervical spine. Degenerative spondylitic changes, as above. Reviewed, dictated and finalized at [facility]. Impression: No fracture or subluxation of the cervical spine. Degenerative spondylitic changes, as above.
[2025-06-26 23:19] VITALS: BP 145/71; PULSE 70; RESP 16; TEMP 36.7; O2SAT 90
--- OUTSIDE RECORDS SUMMARY | 2025-06-26 23:21 | XMS_ITS | Clinical Summary ---
Author Organization [facility] Address [address] [place] [address] Care Team Providers Care Diesel Engine Operator Name Role Phone Victoria Nuñez MD Primary Care Provider [phone] Source Comments [facility],non-owned Affiliates and Associated Physician Practices is amultiple site organization consisting of ambulatory clinics and hospital sitesin [place], [place], [place] and [place]. This disclosure is being madepursuant to the Care Everywhere program and may not contain all information available regarding this patient. 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 Gender Identity Not on file Sexual Orientation [...] series) 2024 DEPRESSION SCREENING 11/10/2024 INFLUENZA VACCINE (#1) 2025 HEPATITIS B VACCINE Aged Out No [...] this topic Insurance [employer] MEDICARE E[employer]ENCE MED[employer]ARE [facility] Care Address: [address] [place] [phone] SELF PAY NO INSURANCE Member Subscriber Plan / Payer (Ef fective for All Dates) Name:Yamile Richardson Member ID:Not on file Relation to Subscriber:Not on file Name:TAWANDA,YAMILE Subscriber ID:Not on file (Home) Address: [address] [place] [address] [place] [address] Payer ID:Not on file Group ID:Not on file Type:Self Pay Address: [place], [place] [facility] MEDICARE [facility] Care Address: [address] [address] SELF PAY NO INSURANCE Member Subscriber Plan / Payer (Ef fective for All Dates) Name:Yamile Richardson Member ID:Not on file Relation to Subscriber:Not on file Name:YAMILE RICHADRSON Subscriber ID:Not on file (Home) Address: [address] [place] [address] [place] [address] Payer ID:Not on file Group ID:Not on file Type:Self Pay Address: [place], [place] Care Teams Diesel Engine Operator Relationship Specialty Start Date End Date Victoria Nuñez MD [address] [place] [address] [address] [place] [address] PCP - General 10/15/13
--- OUTSIDE RECORDS SUMMARY | 2025-06-26 23:21 | XMS_ITS | Clinical Summary ---
Author Organization [facility] Address [address] [place] [address] Care Team Providers Care Nude Model Name Role Phone WillieJennifer moseley ANSELMO Primary Care Provider [phone] Allergies Active Allergy Reactions Criticality Noted Date [...] complication, without long-term current use of insulin ([facility]) USE 2 LANCETS PER DAY TO TEST BLOOD SUGAR 200 each 03/04/20 Active Glucose Blood (CONTOUR NEXT TEST) test stripIndications:Type 2 diabetes mellitus without complication, without long-term current use of insulin ([facility]) USE DIRECTED TWICE DAILY 200 strip 03/04/20 Active metFORMIN 500 MG tabletIndications:Type 2 diabetes mellitus without complication, without long-term current use of insulin ([facility]) Take 1 tablet (500 mg total) by [...] pain 05/21/2017 Chronic lower back pain 07/31/2016 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 Legal Sex Female 8:06 PM CDT Gender Identity Female 10/14/2018 10:17 AM HEALTH BENEFITS SPECIALIST Sexual Orientation Straight 10/14/2018 10 :17 AM HEALTH BENEFITS SPECIALIST Last Filed Vital Signs Vital Sign Reading [...] 11:10 AM CDT Height 175.3 cm (5' 9) 06/05/2021 11:10 AM CDT Body Mass Index [...] - 1-dose 75+ series) 2024 PHQ-2 (Physician [place]) 11/10/2024 DTaP, Tdap and Td Vaccines (2 [...] - 5.60 % 06/06/2021 10:02 AM CDT [facility] ESTIMATED AVG GLUCOSE 148(H) 74 - 106 MG/DL 06/06/2021 10:02 AM CDT [facility] 06/05/2021 11:3 7 AM CDT Gumaro Doe MD LABORATORY Final Result [facility] [address] [place] [address], [place] [phone] * DIABETIC RETINOPATHY EXAM (NEGATIVE)(SCAN) (05/23/2021) Documents [...] LDL-C. Reggie SS et al. MERLINE. 2013;310(19): 5354-2083 (http://education.[employer]/faq/WUG083) CHOL/HDL RATIO 3.3 <5.0 (calc) [facility] [...] Result [facility] [address] [place] [address] * COLONOSCOPY (06/12/2016) us Documents Scanned SCANNING Final Result from Last 3 Months or Most Recently Relevant to Health Maintenance Insurance [employer] Care Teams Nude Model Relationship Specialty Start Date End Date [place] [address] PCP - General NURSE PRACTITIONER 05/10/22
--- OUTSIDE RECORDS SUMMARY | 2025-06-26 23:21 | XMS_ITS | Clinical Summary ---
Author Organization [facility] [address] Address [address] [place] [address] Care Team Providers Care Stage Hand Name Role Phone Arlet Madrid Primary Care Provider [phone]- [phone] Allergies Active Allergy Reactions Criticality Noted Date [...] on file Legal Sex Female 1:06 AM DIRECTOR OF CODING Gender Identity Not on file Sexual Orientation [...] P M CDT Height 175.3 cm (5' 9) 03/13/2022 3:06 PM CDT Body Mass Index [...] Risk Assessment 03/13/2023 03/13/2022 Covid-19 Vaccine (4 - 2023-2 5 season) 2024 09/18/2021, 02/28/2021, 01/31/2021 DTaP/Tdap/Td Vaccine (2 - Td or Tdap) 06/27/2025 06/27/2015 Influenza Vaccine (#1) 2025 , 08/31/2020, 10/09/2019, Additional history exists Pneumococcal vaccine 65+ Completed 020, 09/24/2017, 07/31/2016 [place] [address] [facility] Care Teams Stage Hand Relationship Specialty Start Date End Date Arlet Madrid PA PCP - General Senior Data Architect 03/13/22
--- OUTSIDE RECORDS SUMMARY | 2025-06-26 23:21 | XMS_ITS | Encounter Summary ---
Author Organization [facility] Address [address] [facility] [place] [address] Care Team Providers Care Finisher Screwdown Name Role Phone Victoria Nuñez MD Primary Care Provider [phone]- [phone] Encounter Details Date Type Department Care Team (Late st Contact Info) Description 08/10/2020 Lab Requisition [facility] DermPath Lab [address] [facility], [facility] [place] [id number] Taisha Ornelas MD [address] 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 Gender Identity Not on file Sexual Orientation Not on file documented as of this encounter Plan of Treatment Not on file documented as of this encounter Procedures Procedure Name Priority Date/Time Associated Diagnosis Comments DERMATOPATHOLOGY Routine 08/09/2020 12:0 0 AM CDT documented in this encounter Results * DERMATOPATHOLOGY (08/09/2020 12:00 AM CDT) Case Report Dermatopathology Report Case: [id number] Authorizing Provider: Taisha Ornelas MD Collected: 08/09/2020 12:00 AM Ordering Location: [facility] DermPath Lab Received: 08/10/2020 01:26 PM Pathologist: Zack Johnson MD Specimen: Skin, left inferior cheek 0 2:36 PM CDT DERMATOPATHOLOGY LABORATORY Final Diagnosis Specimen A. 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 0 2:36 PM CDT DERMATOPATHOLOGY LABORATORY Gross Description Specimen A: Received is one formalin filled container labeled with the patient's name and designated left inferior cheek. The specimen consists of a punch measuring 2e1h5cm. Jar 0. 0 2:36 PM CDT DERMATOPATHOLOGY [...] characteristic determined by the Dermatopathology Laboratory at [facility], directed by Dr. Elliot Johnson. These tests need not be, and therefore are not, approved by the [place] Food and Drug Administration. The tests are used for clinical purposes. Billing Codes Specimen Charges Stain Charges 22216 1 0 2:36 PM CDT DERMATOPATHOLOGY LABORATORY Embedded Images 0 2:36 PM CDT DERMATOPATHOLOGY LABORATORY Pathology/Cytolog y TISSUE SPECIMEN FROM SKIN / Unknown 08/09/2020 08/10/2020 1:26 PM CDT us Taisha Ornelas MD LAB - PATHOLOGY/CYTOLOGY OR DERABLES Final Result DERMATOPATHOLOGY LABORATORY [facility] - Department of Dermatology [address], [address] [phone] documented in this encounter Visit Diagnoses Not on filedocumented in this encounter Care Teams Finisher Screwdown Relationship Specialty Start Date End Date Victoria Nuñez MD [address] [facility] [address] [place] [address] PCP - General 10/15/13 documented as of this encounter
--- OUTSIDE RECORDS SUMMARY | 2025-06-26 23:21 | XMS_ITS | Encounter Summary ---
Author Organization [facility] Address [address] [place] [address] Care Team Providers Care Investigations Consultant Name Role Phone Dena Tapiaa ANSELMO Primary Care Provider [phone] Encounter Details Date Type Department Care Team (Late st Contact Info) Description 01/10/2023 [employer] Message Enc [facility] Family Medicine [address] [address] Amy, [facility] Provider Overdue for Annual Physical Social History Tobacco Use Types Packs/Day Years Used Date Smoking Tobacco: Some Days Cigarettes 0.5 10 Smokeless Tobacco: Never Comments:smokes one of daugh ters cigaretts just off and on. Provider to cruise counselor Alcohol Use Standard Drinks/Week Comments No [...] Sex Assigned at Female 10/14/2018 10:17 AM SCREENING UNIT REGISTERED NURSE Legal Sex Female 8:06 PM CDT Gender Identity Female 10/14/2018 10:17 AM SCREENING UNIT REGISTERED NURSE Sexual Orientation Straight 10/14/2018 10 :17 AM SCREENING UNIT REGISTERED NURSE documented as of this encounter Plan of Treatment Not on file documented as of this encounter Visit Diagnoses Not on filedocumented in this encounter Additional Health Concerns Assessment Noted Time PHQ-9 Depression Total Score: 0 11/28/19 21 10:40 AM SCREENING UNIT REGISTERED NURSE documented as of this encounter Care Teams Investigations Consultant Relationship Specialty Start Date End Date Jennifer Tapia NP [address] [place] [address] PCP - General NURSE PRACTITIONER 05/10/22 documented as of this encounter
--- NOTE | 2025-06-27 02:33 | ED_ITS ---
HPI - Fall General Chief Complaint: Fall Stated Complaint: glf out of bed, hit head on floor Time Seen by Provider: 06/27/25 02:23 History of Present Illness HPI Narrative: 74-year-old female with a history of anxiety, osteopenia, hypertension, diabetes. Patient presents to the emergency department after a ground level fall where she rolled out of bed and hit her left side of the head against the ground. She believe she is concussed that she was slightly confused afterwards but did not lose consciousness. Does not take any blood thinner medications. Endorses a headache but no other symptoms. No nausea, vomiting, vision changes, neuropathy or difficulty walking or ambulating. No sensory or motor deficits. Was otherwise in her normal state of health. States she has had previous concussions and this feels similar. Related Data Home Medications ?Medication ?Instructions ?Recorded ?Confirmed ?Last Taken ?Type ferrous sulfate 325 mg (65 mg 325 mg PO DAILY 07/25/21 03/29/25 08/02/21 History iron) tablet (Iron (ferrous sulfate)) acetaminophen 325 mg tablet 325 mg PO Q6H PRN 10/06/24 03/29/25 Unknown History (Tylenol) ascorbic acid (vitamin C) 100 mg 100 mg PO DAILY 10/06/24 03/29/25 Unknown History tablet (Vitamin C) calcium amino acid chelate mg PO 10/06/24 03/29/25 Unknown History calcium polycarbophil 625 mg 1,250 mg PO DAILY PRN 10/06/24 03/29/25 Unknown History tablet (Fiber Laxative (calcium polycarbophil)) vitamin B12 0.5 mg-folic acid 1 mg 1 tablet PO DAILY 10/06/24 03/29/25 Unknown History tablet zinc acetate 25 mg (zinc) capsule 25 mg PO DAILY 10/06/24 03/29/25 Unknown History Allergies Allergy/AdvReac Type Severity Reaction Status Date / Time iodine Allergy Nausea and Verified 03/29/25 10:18 Vomiting amoxicillin (From Augmentin) AdvReac Nausea and Verified 03/29/25 10:18 Vomiting clavulanic acid (From AdvReac Nausea and Verified 03/29/25 10:18 Augmentin) Vomiting Review of Systems Review of Systems: As reviewed above in HPI [facility] Past Medical History Medical History GERD (gastroesophageal reflux disease) Lymphocytic colitis Positive fecal occult blood test Weight loss Epigastric pain Cellulitis COVID-19 Chronic, continuous use of opioids Anemia Gastric ulcer History of colon polyps Type 2 diabetes mellitus with hyperglycemia Hyperlipidemia HTN (hypertension) Surgical History Surgical History History of sinus surgery History of hysterectomy History of tonsillectomy History of cholecystectomy History of appendectomy Family History Family History Father Family history of premature coronary heart disease, Onset Age: 67 Patient's father is Hypertension Mother Family history of pancreatic cancer, Onset Age: 71 Patient's mother is Sibling Family history of malignant neoplasm of breast in first degree relative Social History Social History Smoking packs per day: 0.5 Smoking cigarettes per day: 10.0 Years smoked: 10 Smoking pack-years: 5.00 Smoking status: Former smoker Tobacco type: cigarettes Second hand tobacco smoke exposure: No Additional smoking assessment comments: STATES QUIT AGE 49 Alcohol intake: never Substance use: current Substance use type: opiates Other substance usage details: hydrocodone7.5mg/acetaminophin 325mg QID prn pain Lack of Transportation: No Lack of Food: Never True Current Housing: I Have Housing Concerned About Future Housing: No Difficulty Paying Gas/Electric Bills: No Difficulty Paying for Meds: No Currently Unemployed: No Education: High School Diploma/GED Difficulty w/ Childcare or Family Care: No Living arrangements: with family Additional living arrangements comments: LIVES WITH SPOUSE - [place] Occupation/Education: retired Gender identity (if verbalized by the patient): Female Sexual Orientation (if Verbalized by the Patient): Straight or Heterosexual Spiritual care concerns: No Agree to blood products: Yes Exam Narrative: GENERAL: [Well-appearing, well-nourished, and in no acute distress.] HEAD: Left-sided frontal scalp hematoma without any active bleeding, no palpable defect EYES: Pupils are equal reactive to light, extraocular movements are intact ENT: Nares clear, no rhinorrhea or epistaxis. Mucous membranes moist. NECK: Supple. CHEST: No respiratory distress or tachypnea HEART: RRR EXTREMITIES: Normal range of motion. [No edema.] SKIN: Warm, dry, no rash. NEURO: [No focal deficits]. Alert and oriented [x3.] PSYCH: [Normal mood and affect.] Course Vital Signs Vital signs: Vital Signs Temperature 36.7 C 06/26/25 23:19 Pulse Rate 70 06/26/25 23:19 Respiratory Rate 16 06/26/25 23:19 Blood Pressure 145/71 H 06/26/25 23:19 Pulse Oximetry 90 06/26/25 23:19 Oxygen Delivery Room Air 06/26/25 23:19 Temperature 36.6 C 06/27/25 03:43 Pulse Rate 68 06/27/25 03:43 Respiratory Rate 17 06/27/25 03:43 Blood Pressure 138/72 06/27/25 03:43 Pulse Oximetry 98 06/27/25 03:43 Oxygen Delivery Room Air 06/26/25 23:19 MDM - Fall MDM Narrative Medical decision making narrative: 74-year-old female with a history of anxiety, osteopenia, hypertension, diabetes . Patient presents to the emergency department after a ground level fall where she rolled out of bed and hit her left side of the head against the ground. She believe she is concussed that she was slightly confused afterwards but did not lose consciousness. Does not take any blood thinner medications. Endorses a headache but no other symptoms. No nausea, vomiting, vision changes, neuropathy or difficulty walking or ambulating. No sensory or motor deficits. Was otherwise in her normal state of health. States she has had previous concussions and this feels similar. Left-sided frontal scalp hematoma without any active bleeding, no palpable defect. Normal vital signs here no significant hypertension, tachycardia, tachypnea or fever. Normal neurological assessment and she is awake alert oriented answering all my questions appropriately. No functional deficits appreciated. Symptoms sound consistent with a concussion based on the description of events. CT head and CT cervical spine imaging obtained given the mechanism of injury. Will rule out intracranial pathology such as hemorrhage, epidural, subdural, cervical pathology although she has no restricted range of motion or spinal tenderness which is reassuring. CT scans were unremarkable for any traumatic injuries. She was given an ice pack, oxycodone and ibuprofen for analgesia. Ambulating without difficulty and safe for discharge home at this time with concussion instructions and return precautions. Patient and family verbalized understanding these instructions and safe for discharge at this time. Medical Records Attestation: I reviewed the patient's medical records. Imaging Data Attestation: I personally reviewed and interpreted this imaging study as follows: My impression: No traumatic injuries. Discharge Plan Discharge Clinical Impression: CHI (closed head injury), Hematoma of frontal scalp, Concussion Patient Disposition: Home Condition: Stable Instructions: Antibiotic Form, Concussion (ED), Head Injury (ED), Contusion in Adults (ED) Additional Instructions: Symptoms consistent with concussion but scans of the head and cervical spine showed no injuries, skull fractures, brain swelling or bleeding. No concerning findings today. Take pain control medications at home in addition to ice and heat or other topical agents to help relieve your pain. Return with any new or persisting concerns otherwise follow-up with regular doctor on outpatient basis as needed. Patient Language: Cuban Prescriptions: No Action (DME) lancets [Micro Thin Lancets] 33 gauge misc See Rx Instructions .Route Qty: 100 2RF Rx Instructions: daily Vitamin C 100 mg tablet 100 mg PO DAILY calcium amino acid chelate 200 mg calcium tablet PO zinc acetate 25 mg (zinc) capsule 25 mg PO DAILY vitamin Q58-nieyf acid 0.5-1 mg tablet 1 tablet PO DAILY acetaminophen [Tylenol] 325 mg tablet 325 mg PO Q6H PRN calcium polycarbophil [Fiber Laxative (ca polycarbo)] 625 mg tablet 1,250 mg PO DAILY PRN metformin 500 mg tablet 500 mg PO QID Qty: 360 3RF escitalopram oxalate 20 mg tablet 20 mg PO DAILY Qty: 90 1RF ferrous sulfate [Iron (ferrous sulfate)] 325 mg (65 mg iron) Tablet 325 mg PO DAILY (DME) Contour Next Test Strips Strip See Rx Instructions .Route Qty: 200 2RF Rx Instructions: Use to test blood glucose three times per day bupropion HCl 150 mg tablet extended release 24 hr See Rx Instructions .ROUTE .COMPLEX Qty: 90 1RF Dose Instruction: TAKE 1 TABLET BY MOUTH EVERY DAY IN THE MORNING Rx Instructions: TAKE 1 TABLET BY MOUTH EVERY DAY IN THE MORNING mirtazapine [Remeron] 30 mg tablet 30 mg PO HS Qty: 90 2RF Humulin 70/30 U-100 KwikPen 100 unit/mL (70-30) insulin pen See Rx Instructions subcut BID Qty: 15 5RF Rx Instructions: Use 18 units in AM and 12 units in PM subcutaneously (DME) pen needle, diabetic 31 gauge x 3/16 needle See Rx Instructions .Route Qty: 100 5RF Rx Instructions: Use twice daily to inject insulin metoprolol succinate 100 mg tablet extended release 24 hr 100 mg PO DAILY Qty: 90 3RF simvastatin [Zocor] 10 mg tablet 10 mg PO DAILY Qty: 90 3RF lisinopril [Zestril] 10 mg tablet 10 mg PO DAILY Qty: 90 3RF buspirone 10 mg tablet 10 mg PO BID Qty: 60 5RF gabapentin 800 mg tablet See Rx Instructions .ROUTE .COMPLEX Qty: 360 2RF Dose Instruction: TAKE 1 TABLET (800 MG) BY MOUTH 4 TIMES DAILY Rx Instructions: TAKE 1 TABLET (800 MG) BY MOUTH 4 TIMES DAILY omeprazole 20 mg capsule,delayed release(DR/EC) See Rx Instructions .ROUTE .COMPLEX Qty: 90 2RF Dose Instruction: TAKE 1 TABLET BY MOUTH EVERY DAY Rx Instructions: TAKE 1 TABLET BY MOUTH EVERY DAY hydrocodone-acetaminophen 10-325 mg tablet 1 tablet PO QID PRN (Reason: pain) Qty: 120 0RF Follow-up/Referrals: Jamal Ac MD [Primary Care Provider] - Time of Disposition: 02:37
--- OUTSIDE RECORDS SUMMARY | 2025-06-27 03:03 | XMS_ITS | Encounter Summary ---
Author Organization [facility] Address [address] [place] [address] Care Team Providers Care Die Cutting Machine Operator Name Role Phone Dena Tapiaa ANSELMO Primary Care Provider Encounter Details Date Type Department Care Team (Late st Contact Info) Description 01/10/2023 Signature Message Enc [facility] Family Medicine [address] [address] Amy, [facility] Provider Overdue for Annual Physical Social History Tobacco Use Types Packs/Day Years Used Date Smoking Tobacco: Some Days Cigarettes 0.5 10 Smokeless Tobacco: Never Comments:smokes one of daugh ters cigaretts just off and on. Provider to extension course counselor Alcohol Use Standard Drinks/Week Comments No [...] Sex Assigned at Female 10/14/2018 10:17 AM OUTSIDE PROPERTY AGENT Legal Sex Female 8:06 PM CDT Gender Identity Female 10/14/2018 10:17 AM OUTSIDE PROPERTY AGENT Sexual Orientation Straight 10/14/2018 10 :17 AM OUTSIDE PROPERTY AGENT documented as of this encounter Plan of Treatment Not on file documented as of this encounter Visit Diagnoses Not on filedocumented in this encounter Additional Health Concerns Assessment Noted Time PHQ-9 Depression Total Score: 0 11/28/19 21 10:40 AM OUTSIDE PROPERTY AGENT documented as of this encounter Care Teams Die Cutting Machine Operator Relationship Specialty Start Date End Date Jennifer Tapia NP [address] [address] PCP - General NURSE PRACTITIONER 05/10/22 documented as of this encounter
--- OUTSIDE RECORDS SUMMARY | 2025-06-27 03:03 | XMS_ITS | Clinical Summary ---
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
--- OUTSIDE RECORDS SUMMARY | 2025-06-27 03:03 | XMS_ITS | Clinical Summary ---
Author Organization [facility] Address [address] [place] [address] Care Team Providers Care Cam Maker Name Role Phone Victoria Nuñez MD Primary Care Provider +1- [phone] Source Comments [facility],non-owned Affiliates and Associated Physician Practices is amultiple site organization consisting of ambulatory clinics and hospital sitesin [place], [place], [place] and [place]. This disclosure is being madepursuant to the Care Everywhere program and may not contain all information available regarding this patient. 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 Gender Identity Not on file Sexual Orientation [...] this topic Insurance [employer] E[employer] [facility] Care Address: [address] [place] [phone] SELF PAY NO INSURANCE Member Subscriber Plan / Payer (Ef fective for All Dates) Name:Yamile Richardson Member ID:Not on file Relation to Subscriber:Not on file Name:TAWANDA,YAMILE Subscriber ID:Not on file (Home) Address: [address] [place] [address] [place] [address] Payer ID:Not on file Group ID:Not on file Type:Self Pay Address: [place], [place] [facility] MEDICARE [facility] Care Address: [address] [address] SELF PAY NO INSURANCE Member Subscriber Plan / Payer (Ef fective for All Dates) Name:Yamile Richardson Member ID:Not on file Relation to Subscriber:Not on file Name:YAMILE RICHARDSON Subscriber ID:Not on file (Home) Address: [address] [place] [address] [place] [address] Payer ID:Not on file Group ID:Not on file Type:Self Pay Address: [place], [place] Care Teams Cam Maker Relationship Specialty Start Date End Date Victoria Nuñez MD [address] [place] [address] [address] [place] [address] PCP - General 10/15/13
--- OUTSIDE RECORDS SUMMARY | 2025-06-27 03:03 | XMS_ITS | Encounter Summary ---
Author Organization [facility] Address [address] [place] [address] Care Team Providers Care Missile Control Pilot Name Role Phone Victoria Nuñez MD Primary Care Provider [phone] Encounter Details Date Type Department Care Team (Late st Contact Info) Description 08/10/2020 Lab Requisition [facility] DermPath Lab [address] [facility] [address], [facility] [place] [id number] Taisha Ornelas MD [address] [facility] [address] [place] [address] Social History Tobacco Use Types Packs/Day Years Used Date Smoking Tobacco: Never Assessed Comments Unknown Sex and Gender Information Value Date Recorded Sex Assigned at Not on file Legal Sex Female 6:12 PM [employer] Gender Identity Not on file Sexual Orientation Not on file documented as of this encounter Plan of Treatment Not on file documented as of this encounter Procedures Procedure Name Priority Date/Time Associated Diagnosis Comments DERMATOPATHOLOGY Routine 08/09/2020 12:0 0 AM CDT documented in this encounter Results * DERMATOPATHOLOGY (08/09/2020 12:00 AM CDT) Case Report Dermatopathology Report Case: [id number] Authorizing Provider: Taisha Ornelas MD Collected: 08/09/2020 12:00 AM Ordering Location: [facility] Care DermPath Lab Received: 08/10/2020 01:26 [...] The specimen consists of a punch measuring [id number]. Jar 0. 0 2:36 PM CDT DERMATOPATHOLOGY [...] characteristic determined by the Dermatopathology Laboratory at [facility], directed by Dr. Elliot Johnson. These tests need not be, and therefore are not, approved by the [place] Food and Drug Administration. The tests are used for clinical purposes. Billing Codes Specimen Charges Stain Charges 67984 1 0 2:36 PM CDT DERMATOPATHOLOGY LABORATORY Embedded Images 0 2:36 PM CDT DERMATOPATHOLOGY LABORATORY Pathology/Cytolog y TISSUE SPECIMEN FROM SKIN / Unknown 08/09/2020 08/10/2020 1:26 PM CDT us Taisha Ornelas MD LAB - PATHOLOGY/CYTOLOGY OR DERABLES Final Result DERMATOPATHOLOGY LABORATORY [facility] - Department of Dermatology [address], [address] [phone] documented in this encounter Visit Diagnoses Not on filedocumented in this encounter Care Teams Missile Control Pilot Relationship Specialty Start Date End Date Victoria Nuñez MD [address] [facility] [address] [place] [address] PCP - General 10/15/13 documented as of this encounter
--- OUTSIDE RECORDS SUMMARY | 2025-06-27 03:03 | XMS_ITS | Clinical Summary ---
Author Organization [facility] Address [address] [place] [address] Care Team Providers Care Handbell Choir Director Name Role Phone WillieJennifer moseley ANSELMO Primary Care Provider [phone] Allergies Active Allergy Reactions Criticality Noted Date [...] complication, without long-term current use of insulin ([facility]) USE 2 LANCETS PER DAY TO TEST BLOOD SUGAR 200 each 03/04/20 Active Glucose Blood (CONTOUR NEXT TEST) test stripIndications:Type 2 diabetes mellitus without complication, without long-term current use of insulin ([facility]) USE DIRECTED TWICE DAILY 200 strip 03/04/20 Active metFORMIN 500 MG tabletIndications:Type 2 diabetes mellitus without complication, without long-term current use of insulin ([facility]) Take 1 tablet (500 mg total) by [...] pain 05/21/2017 Chronic lower back pain 07/31/2016 long term care social worker use of drug 07/10/2016 Benign essential hypertension 12/28/2015 Body mass index (BMI) 23.0-23.9, adult 6 Depression 12/28/2015 Diabetes mellitus ([facility]) 12/28/2015 GERD (gastroesophageal reflux disease) 6 Hyperlipidemia [...] Shingrix 12/29/2019 Tdap (Generic) 06/27/2015 Zoster (Zostavax) 79519 Unt/0.65Ml 10/20/2017 Family History Medical History Relation [...] cigaretts just off and on. Provider to veterans rehabilitation counselor Alcohol Use Standard Drinks/Week Comments No [...] Sex Assigned at Female 10/14/2018 10:17 AM [employer] Legal Sex Female 8:06 PM CDT Gender Identity Female 10/14/2018 10:17 AM [employer] Sexual Orientation Straight 10/14/2018 10 :17 AM [employer] Last Filed Vital Signs Vital Sign Reading [...] - 1-dose 75+ series) 2024 PHQ-2 (Physician [facility] [place] [facility] [place]) 11/10/2024 DTaP, Tdap and Td Vaccines (2 [...] - 5.60 % 06/06/2021 10:02 AM CDT [facility] ESTIMATED AVG GLUCOSE 148(H) 74 - 106 MG/DL 06/06/2021 10:02 AM CDT [facility] 06/05/2021 11:3 7 AM CDT Gumaro Doe MD LABORATORY Final Result [facility] [address] [place] [address], [place] [phone] * DIABETIC RETINOPATHY EXAM (NEGATIVE)(SCAN) (05/23/2021) Documents [...] LDL-C. Reggie SS et al. MERLINE. 2013;310(19): 4232-8641 (http://education.[employer]/faq/JUU142) CHOL/HDL RATIO 3.3 <5.0 (calc) [facility] [...] Result [facility] [address] [place] [address] * COLONOSCOPY (06/12/2016) us Documents Scanned SCANNING Final Result from Last 3 Months or Most Recently Relevant to Health Maintenance Insurance [employer] Care Teams Handbell Choir Director Relationship Specialty Start Date End Date Jennifer [place] [address] PCP - General NURSE PRACTITIONER 05/10/22
[2025-06-27] MEDS: oxyCODONE HCL (*CRX) 5 MG TAB IR PO (03:09)
[2025-06-27] MEDS: IBUPROFEN 600 MG TABLET PO (03:09)
[2025-06-27 03:43] VITALS: BP 138/72; PULSE 68; RESP 17; TEMP 36.6; O2SAT 98
== END 2025-06-27 03:45 | disposition home or self-care (01) ==
PROVIDERS: Emergency Provider Student in an Organized Health Care Education/Training Program; PCP Family Medicine Adolescent Medicine
DX: S06.0X0A Concussion without loss of consciousness, initial encounter (principal); S00.03XA Contusion of scalp, initial encounter; I10 Essential (primary) hypertension; E11.9 Type 2 diabetes mellitus without complications; E78.5 Hyperlipidemia, unspecified; K21.9 Gastro-esophageal reflux disease without esophagitis; M85.80 Other specified disorders of bone density and structure, unspecified site; F41.9 Anxiety disorder, unspecified; Z86.0100 Personal history of colon polyps, unspecified; Z86.16 Personal history of COVID-19; Z87.891 Personal history of nicotine dependence; Z90.710 Acquired absence of both cervix and uterus; Z90.49 Acquired absence of other specified parts of digestive tract; Z79.84 Long term (current) use of oral hypoglycemic drugs; Z79.899 Other long term (current) drug therapy; Z79.4 Long term (current) use of insulin; W06.XXXA Fall from bed, initial encounter
CPT/HCPCS: 70450; 72125; 99284; A9270